=== PATIENT | female | born 1995 | race Caucasian/White ===

== ENCOUNTER 2016-05-24 12:50 | Emergency (ER) | payer OTHER ==
--- NOTE | 2016-05-24 14:31 | ED ORDER SUMMARY ---
..... Patient: BG GARDUNO OrderSheet [facility] VisitID: [id number] [address] [place] [address] 20y, F Registration Date/Time: 05/24/2016 ORDER SHEET Weight: 113.3 kg (stated) Allergies: Iodine GENERAL ORDERS: CBC w Diff Urgent (13:20 05/24/2016 HBivens A.R.N.P.) (Ack 13:24 LMuller) (13:42 ASchmuck) CMP Urgent (13:05/24/2016 HBivens A.R.N.P.) (Ack 13:24 LMuller) (13:42 ASchmuck) UA-Culture if indicated Urgent (13:05/24/2016 HBivens A.R.N.P.) (Ack 13:24 LMuller) (13:24 LMuller) Amylase Urgent (13:05/24/2016 HBivens A.R.N.P.) (Ack 13:24 LMuller) (13:42 ASchmuck) Lipase Urgent (13:05/24/2016 HBivens A.R.N.P.) (Ack 13:24 LMuller) (13:42 ASchmuck) Urine Urgent (13:05/24/2016 HBivens A.R.N.P.) (Ack 13:24 LMuller) (13:24 LMuller) MEDICATION ORDERS: IV FLUIDS: Toradol IV 30 mg (NOW) (13:20 05/24/2016 HBivens A.R.N.P.) (Ack 13:42 ASchmuck) (13:50 ASchmuck) IV Saline Lock (13:05/24/2016 HBivens A.R.N.P.) (13:42 ASchmuck) ORDER SHEET NOTES: [Electronically signed by Nadege Nunez A.R.N.P. (15:08 05/24/2016)] [Electronically signed by Tasneem Lane (14:25 05/26/2016)] [Electronically locked/signed by Tasneem Lane (14:05/26/2016)]
--- NOTE | 2016-05-24 14:31 | ED CLINICAL REPORT ---
Clinical Report - Physicians/Mid Levels [facility] [address] [place] [address] 05/24/2016 12:51 Patient: BG GARDUNO Time Seen: 1312; initial patient contact, initial documentation, patient care assumed. Arrived- By private vehicle. Historian- patient. HISTORY OF PRESENT ILLNESS Chief Complaint: ABDOMINAL PAIN. At its maximum, severity described as severe. When seen in the E.D., severity described as severe. Modifying factors- worsened by deep breaths. Not relieved by anything. It is described as "pain", sharp and stabbing and it is described as located in the left upper quadrant and the left flank. This started about 2 days ago and is still present. It was abrupt in onset and has been constant. No nausea, loss of appetite or vomiting. She has had mild diarrhea (x4 episodes today). No recent travel. Similar symptoms previously: None. Recent medical care: Not recently seen/assessed. REVIEW OF SYSTEMS No constipation, black stools, hematemesis, difficulty with urination or pain with urination. No urinary frequency, bloody stools, fever, chest pain or difficulty breathing. No cough. Currently : possible. All systems otherwise negative, except as recorded above. PAST HISTORY See nurses notes. PROBLEMS: UTI - Urinary Tract Infection. Chlamydia. LNMP - Last Normal Menstrual Period. Polycystic Ovary Disease. Depression. Anxiety Reaction. --13:[address] ADDITIONAL SURGERIES: Tonsillectomy & Adenoidectomy. --13:[address] SOCIAL HISTORY Heavy tobacco smoker. Occasional alcohol use. No drug use. No recent travel. Is a local resident. FAMILY HISTORY Negative. ADDITIONAL NOTES The nursing notes have been reviewed with agreement regarding the chief complaint, HPI, ROS, PMH and patient medications and allergies. PHYSICAL EXAM Vital Signs: 05/24/2016 13:02 BP: 124/73. HR: 93. RR: 17. O2 saturation: 100%. Temp: 98.4 F. Pain level now: 9/10. Have been reviewed as normal and appear to be correct. Appearance: Alert. Oriented X3. No acute distress. Eyes: Pupils equal, round and reactive to light. Eyes normal inspection. Neck: Normal inspection. Neck supple. CVS: Normal heart rate and rhythm. Heart sounds normal. Pulses normal. Respiratory: No respiratory distress. Breath sounds normal. Chest nontender. Abdomen: Soft. Moderate tenderness in the left upper quadrant and left side of the abdomen. Bowel sounds normal. No organomegaly. No mass. Mildly obese. Tenderness present. Back: Abnormal inspection. Mild CVA tenderness on the left. Skin: Skin warm and dry. Normal skin color. No rash. Normal skin turgor. Extremities: Extremities exhibit normal ROM. No lower extremity edema. Neuro: Oriented X 3. No motor deficit. No sensory deficit. LABS, X-RAYS, AND EKG Laboratory Tests: UA-Culture if indicated: (CONSTANTINO: 05/24/2016 13:00) ( [facility] 05/24/2016 13:58) Final results Test Result Flag Units (Reference) URINE COLOR YELLOW URINE APPEARANCE SL CLOUDY URINE GLUCOSE NEGATIVE (NEGATIVE) URINE BILIRUBIN NEGATIVE (NEGATIVE) URINE KETONE NEGATIVE (NEGATIVE) URINE SPECIFIC GRAVITY 1.020 (1.010-1.030) URINE PH 6.5 (5.0-8.0) URINE PROTEIN NEGATIVE (NEGATIVE) URINE UROBILINOGEN 0.2 EU/dL (0.2-1.0) URINE NITRITE NEGATIVE (NEGATIVE) URINE BLOOD NEGATIVE (NEGATIVE) URINE LEUK ESTERASE TRACE (NEGATIVE) URINE RBC NONE SEEN rbc/hpf (0-1) URINE WBC 10-15 wbc/hpf (0-1) URINE EPITHELIAL CELLS >15 EPI/hpf (0-5) URINE BACTERIA FEW (1+) (NONE SEEN) URINE COMMENT CULTURE INDICATED EPITHELIAL CONTAMINATION. NO CULTURE SETUP.Please call laboratory if culture wanted.URINE CULTURES ARE SET-UP BASED ON THE FOLLOWING CRITERIA:POSITIVE NITRITEPOSITIVE LEUKOCYTE ESTERASEGREATER THAN 10 WHITE BLOOD CELLSMODERATE (2+) OR GREATER BACTERIA Urine: (CONSTANTINO: 05/24/2016 13:00) ( [facility] 05/24/2016 13:32) Final results Test Result Flag Units (Reference) URINE NEGATIVE CBC w Diff: (CONSTANTINO: 05/24/2016 13:30) ( MsgRcvd 05/24/2016 13:46) Final results Test Result Flag Units (Reference) WHITE BLOOD COUNT 9.5 K/uL (4.5-11.5) RED BLOOD COUNT 5.05 M/uL (4.00-5.20) HEMOGLOBIN 14.8 gm/dL (12.0-16.0) HEMATOCRIT 43.9 % (36.0-46.0) MEAN CELL VOLUME 87 fL (80-100) MEAN CORPUSCULAR HGB 29 pg (26-34) MEAN CORPUSCULAR HGB CONC 34 g/dL (31-37) RED CELL DISTRIBUTION WIDTH 12.8 % (11.6-14.8) PLATELET COUNT 268 K/uL (150-400) NEUTROPHIL % 57.1 % (50-75) LYMPH % 31.4 % (25-40) MONO % 6.3 % (3-14) EOSINOPHIL % 4.5 H % (0-4) BASOPHIL % 0.7 % (0-2) CMP: (CONSTANTINO: 05/24/2016 13:30) ( MsgRcvd 05/24/2016 14:14) Final results Test Result Flag Units (Reference) GLUCOSE 151 H mg/dL (70-110) BUN 8 mg/dL (7-18) CREATININE 0.5 L mg/dL (0.6-1.3) Estimated GFR >60 mL/min Estimated GFR- >60 mL/min Note: Persistent reduction over 3 months in eGFR<60 mL/min/1.73 m2 defines CKD. Patients with eGFR values>=60 mL/min/1.73 m2 may also have CKD if evidence ofpersistent proteinuria. Additional information may be foundat www.kidney.org. SODIUM 142 mmol/L (136-145) POTASSIUM 4.2 mmol/L (3.5-5.1) CHLORIDE 107 mmol/L (98-107) CARBON DIOXIDE 26 mmol/L (21-32) CALCIUM 8.9 mg/dL (8.5-10.1) TOTAL PROTEIN 7.2 g/dL (6.4-8.2) ALBUMIN 3.6 g/dL (3.3-5.0) BILIRUBIN, TOTAL 0.4 mg/dL (0.0-1.0) ALKALINE PHOSPHATASE 67 U/L (46-116) AST (SGOT) 34 U/L (15-37) ALT (SGPT) 54 U/L (12-78) LIPASE 109 U/L (73-393) AMYLASE 36 U/L (25-115) . PROGRESS AND PROCEDURES Course of Care: pt has brief [facility] guidelines, see report for full details. Patient counseled in person regarding the patient's stable condition, test results and diagnosis. 14:24. Differential Diagnosis: I considered gastritis, gastroenteritis, peptic ulcer disease, gastroesophageal reflux disease, diverticulitis, colon cancer, ulcerative colitis, Crohn's disease, splenic abscess, hernia, urinary tract infection, ureterolithiasis, , ectopic and viral syndrome as a possible cause of abdominal pain in this patient. This is a partial list of diagnoses considered. Above considerations are based on history, physical exam and laboratory data. Differential diagnosis was discussed with patient. Disposition: Discharged home in good and improved condition (14:31). Condition: good and stable. CLINICAL IMPRESSION Acute urinary tract infection. No cystitis, pyelonephritis or hematuria. Not associated with indwelling catheter or obstruction. Acute left flank pain INSTRUCTIONS Drink plenty of fluids for the next 24 hours until better. Warnings: GENERAL WARNINGS: Return or contact your physician immediately if your condition worsens or changes unexpectedly, if not improving as expected, or if other problems arise. SPECIFICALLY, return if you develop pain in the abdomen or pelvis, fever, vomiting, the inability to keep fluids down, blood in vomitus, blood in diarrhea, fainting or lightheadedness. Prescription Medications: Trimethoprim-Sulfamethoxazole DS: take 1 tablet orally every 12 hours for 7 days. Dispense fourteen (14). No refills. Toradol 10 mg tablets: Take 1 tablet orally every 6 hours as needed. Dispense fifteen (15). No refills. Substitution is permissible. Follow-up: Follow up with your doctor in about three days even if well. Call for an appointment. Summary of care provided to patient. Understanding of the discharge instructions verbalized by patient. (Electronically signed by Nadege Nunez A.R.N.P. 05/24/2016 15:08)
--- NOTE | 2016-05-24 14:31 | ED NURSING NOTES ---
Clinical Report - Nurses [facility] [address] [place] [address] 05/24/2016 12:51 Patient: BG GARDUNO TRIAGE Triage time 13:02 May 24 2016. Acuity: LEVEL 3. Chief Complaint: ABDOMINAL PAIN. 13:09 05/24/16. Alert. No acute distress. SEPSIS SCREEN: Sepsis Screen. Negative (no infection suspected/documented). JUAN DAVID COMA SCORE: Juan David Coma Scale: 15- eyes open spontaneously (4); best verbal response- oriented x 4 (5); best motor response- obeys commands (6). --13:[address] 13:02 05/24/16. BP: 124/73. HR: 93. RR: 17. O2 saturation: 100% on room air. Temp: 98.4 F. Pain level now: 12/24. --13:[address] Weight: 113.3 kg stated. Height/Length: 68 inches Per Patient. BMI: 38. --13:[address] Medications None. --13:[address] Medication/allergy information source: the patient. --13:[address] Allergies Iodine. --13:[address] The following entry was struck by Tasneem Lane, 13:51 (05/24/16) Reason - other(patient remembered allergy). <<STRICKEN ENTRY-- None. --13:08 [address] --END STRIKE>>. History Arrived by private vehicle. Historian: patient. Unaccompanied. No primary care physician. Onset. (2 days ago). Relates location as in the left abdomen. ( Pt states that she is unable to sleep at night d/t pain. Pt reports nose bleed after this has started. Has been nauseous. Has had diarrhea about 6-10 times a day. Nothing makes the pain better. Breathing makes the pain worse, laying on her opposite side makes the pain worse.). She has had nausea, diarrhea and abdominal pain. She has had fever (hot flashes). No vomiting or constipation. Treatment [employer] MECH[employer]IC: Took ibuprofen. PAST MEDICAL HX: Peptic ulcer disease. No history of diabetes mellitus. No history of gastroesophageal reflux disease or gallstones. Immunizations: up-to-date. Last normal menstrual period was 2 weeks ago- has irregular periods. SOCIAL HX: Heavy tobacco smoker (cigarette)- less than 1 pack per day. Occasional alcohol use. No drug use. FALL RISK ASSESSMENT: Fall risk assessment completed. No fall risk identified. NUTRITIONAL RISK ASSESSMENT: The nutritional risk assessment revealed no deficiencies. FUNCTIONAL ASSESSMENT: Functional assessment: no impairments noted. LEARNING NEEDS ASSESSMENT: The learning needs assessment revealed no barriers. SKIN INTEGRITY ASSESSMENT: Skin integrity risk assessment completed. No skin integrity risk identified. --13: Tasneem Lane. PROBLEMS: UTI - Urinary Tract Infection. Chlamydia. LNMP - Last Normal Menstrual Period. Polycystic Ovary Disease. Depression. Anxiety Reaction. --13:[address] ADDITIONAL SURGERIES: Tonsillectomy & Adenoidectomy. --13:[address] Assessment The patient states feels the same. --13: Tasneem Lane. Interventions ID band on patient. Patient ID band checked for patient name and birthdate: patient confirmed. Instructions provided to collect clean catch urine and patient verbalized understanding. Clean catch urine collected with return of yellow-colored clear urine; sample sent to lab. Specimen labeled in the presence of the patient. --13: Tasneem Lane. PHYSICAL ASSESSMENT 13:05/24/16. Ambulatory to room. Patient gowned. GENERAL / NEURO / PSYCH: Alert. Oriented X 4. Appears in no acute distress. HEENT: Mucous membranes are pink. RESPIRATORY: Respirations not labored. CVS: Capillary refill less than 2 seconds. GI / : Abdomen soft. Abdominal tenderness in the left side of the abdomen. Stool color normal. SKIN: Skin is warm and dry. --13: Tasneem Lane. NURSING PROGRESS NOTES 13:05/24/16. The plan of care for this patient has been created. Patient gowned. Head of bed elevated. Reassurance given. Two patient identifiers checked. Call light placed in reach. Side rails up x 1. Bed placed in lowest position. Brakes of bed on. Patient ready for evaluation- chart flagged and ED physician and [employer]SEMBLER notified. --13:[address] 13:22 05/24/2016 One (1) unsuccessful IV access attempt including the right forearm. Applied pressure dressing. --13:[address] 13:36 05/24/2016 Site #1 started via IV in the right forearm with an 20g angiocath; one attempt. Blood drawn: rainbow set. Labeled in the presence of the patient and sent to the lab. Saline lock flushed with 5 mL saline. --13:36 Ailin Mcwilliams R.N. 13:50 05/24/2016 Toradol IVP 30 mg given over 1 minute(s) via site #1. Allergies verified and confirmed 5 rights. IV patency established. IV site checked: no pain, redness, or swelling. IV flushed thoroughly pre- and post-medication administration. IVP given by RN. --13:[address] 14:27 05/24/16. --14:[address] 14:26 05/24/16. BP: 116/66. HR: 72. RR: 16. O2 saturation: 98% on room air. Pain level now: 10/23. --14:[address] 14:42 05/24/16. BP: deferred. HR: deferred. RR: deferred. O2 saturation: deferred. Temp: deferred. Pain level now deferred. --14:[address] DISPOSITION / DISCHARGE 14:45 05/24/16. Departure time: 14:45 May 24 2016. Condition at departure: improved. The goals identified in the patient's plan of care were met. No learning barriers present. Discharge instructions provided and reviewed with the patient. Reviewed warnings (Patient verbalized awareness of warning s/sx listed in dc paperwork.). Reviewed medication(s). Prescription(s) given to the patient (Bactrim, Toradol). Treatments reviewed. Reviewed referral to a primary care physician for followup. Patient verbalized understanding. Written instructions provided in Iranian. The patient was discharged by the nurse practitioner. She was discharged home and unaccompanied at time of discharge. She left the Emergency Department ambulatory and via private vehicle. Patient driving. FALL RISK ASSESSMENT: Fall risk assessment completed. No fall risk identified. --14:[address] 14:42 05/24/16. BP: deferred. HR: deferred. RR: deferred. O2 saturation: deferred. Temp: deferred. Pain level now deferred. 14:26 05/24/16. BP: 116/66. HR: 72. RR: 16. O2 saturation: 98% on room air. Pain level now: 10/23. 13:02 05/24/16. BP: 124/73. HR: 93. RR: 17. O2 saturation: 100% on room air. Temp: 98.4 F. Pain level now: 12/24. --14:[address] Locked/Released at 05/26/2016 14:[address],
--- NOTE | 2016-05-24 14:31 | ED ORDER SUMMARY ---
..... Patient: BG GARDUNO OrderSheet [facility] VisitID: [id number] [address] [place] [address] 20y, F Registration Date/Time: 05/24/2016 ORDER SHEET Weight: 113.3 kg (stated) Allergies: Iodine GENERAL ORDERS: CBC w Diff Urgent (13:20 05/24/2016 HBivens A.R.N.P.) (Ack 13:24 LMuller) (13:42 ASchmuck) CMP Urgent (13:05/24/2016 HBivens A.R.N.P.) (Ack 13:24 LMuller) (13:42 ASchmuck) UA-Culture if indicated Urgent (13:05/24/2016 HBivens A.R.N.P.) (Ack 13:24 LMuller) (13:24 LMuller) Amylase Urgent (13:05/24/2016 HBivens A.R.N.P.) (Ack 13:24 LMuller) (13:42 ASchmuck) Lipase Urgent (13:05/24/2016 HBivens A.R.N.P.) (Ack 13:24 LMuller) (13:42 ASchmuck) Urine Urgent (13:05/24/2016 HBivens A.R.N.P.) (Ack 13:24 LMuller) (13:24 LMuller) MEDICATION ORDERS: IV FLUIDS: Toradol IV 30 mg (NOW) (13:20 05/24/2016 HBivens A.R.N.P.) (Ack 13:42 ASchmuck) (13:50 ASchmuck) IV Saline Lock (13:05/24/2016 HBivens A.R.N.P.) (13:42 ASchmuck) ORDER SHEET NOTES: [Electronically signed by Nadege Nunez A.R.N.P. (15:08 05/24/2016)] [Electronically signed by Tasneem Lane (14:25 05/26/2016)] [Electronically locked/signed by Tasneem Lane (14:05/26/2016)]
--- NOTE | 2016-05-26 14:26 | ED MAR SUMMARY ---
..... Medication Administration Record [facility] [address] [place], [place] [id number] Patient: BG GARDUNO Visit ID: [id number] 20y, F Weight: 113.3 kg Height/Length: 68 in BMI: 38 ALLERGIES: Iodine Given 13:50 05/24/[address], Medication Administered: TORADOL [IVP], Dose: 30 mg IVP over 1 minute(s), Site: #1 right forearm. Medication Ordered: Toradol IV 30 mg (NOW).
--- NOTE | 2016-05-26 14:26 | ED MED RECONCILIATION SUMMARY ---
Patient: BG GARDUNO Medication Reconciliation Report [facility] VisitID: [id number] [address] [place] [address] 20y, F Registration Date/Time: 05/24/2016 Weight: 113.3 kg Height/Length: 68 in. BMI: 38.0 ALLERGIES: Iodine The patient's Home Medications are listed below: NONE. The source(s) of the original Home Medication information: patient The following Medications were given to the patient in the Emergency Department: Toradol [IVP] IVP 30 mg, administered: 05/24/2016 1:50:00 PM The following Medications were prescribed to the patient: Trimethoprim-Sulfamethoxazole DS: take 1 tablet orally every 12 hours for 7 days. Dispense fourteen (14). No refills. -- Nadege Nunez A.R.N.P. Toradol 10 mg tablets: Take 1 tablet orally every 6 hours as needed. Dispense fifteen (15). No refills. Substitution is permissible. -- Nadege Nunez A.R.N.P.
--- NOTE | 2016-05-26 14:26 | ED MAR SUMMARY ---
..... Medication Administration Record [facility] [address] [place], [place] [id number] Patient: BG GARDUNO Visit ID: [id number] 20y, F Weight: 113.3 kg Height/Length: 68 in BMI: 38 ALLERGIES: Iodine Given 13:50 05/24/[address], Medication Administered: TORADOL [IVP], Dose: 30 mg IVP over 1 minute(s), Site: #1 right forearm. Medication Ordered: Toradol IV 30 mg (NOW).
--- NOTE | 2016-05-26 14:26 | ED MED RECONCILIATION SUMMARY ---
Patient: BG GARDUNO Medication Reconciliation Report [facility] VisitID: [id number] [address] [place] [address] 20y, F Registration Date/Time: 05/24/2016 Weight: 113.3 kg Height/Length: 68 in. BMI: 38.0 ALLERGIES: Iodine The patient's Home Medications are listed below: NONE. The source(s) of the original Home Medication information: patient The following Medications were given to the patient in the Emergency Department: Toradol [IVP] IVP 30 mg, administered: 05/24/2016 1:50:00 PM The following Medications were prescribed to the patient: Trimethoprim-Sulfamethoxazole DS: take 1 tablet orally every 12 hours for 7 days. Dispense fourteen (14). No refills. -- Nadege Nunez A.R.N.P. Toradol 10 mg tablets: Take 1 tablet orally every 6 hours as needed. Dispense fifteen (15). No refills. Substitution is permissible. -- Nadege Nunez A.R.N.P.
--- NOTE | 2016-05-26 14:26 | ED DISCHARGE INSTRUCTIONS ---
Patient: BG GARDUNO General Instructions [facility] VisitID: [id number] [address] [place] [address] 20y, F Registration Date/Time: 05/24/2016 Acute urinary tract infection. No cystitis, pyelonephritis or hematuria. Not associated with indwelling catheter or obstruction. Acute left flank pain INSTRUCTIONS Drink plenty of fluids for the next 24 hours until better. Warnings: GENERAL WARNINGS: Return or contact your physician immediately if your condition worsens or changes unexpectedly, if not improving as expected, or if other problems arise. SPECIFICALLY, return if you develop pain in the abdomen or pelvis, fever, vomiting, the inability to keep fluids down, blood in vomitus, blood in diarrhea, fainting or lightheadedness. Prescription Medications: Trimethoprim-Sulfamethoxazole DS: take 1 tablet orally every 12 hours for 7 days. Dispense fourteen (14). No refills. Toradol 10 mg tablets: Take 1 tablet orally every 6 hours as needed. Dispense fifteen (15). No refills. Substitution is permissible. Follow-up: Follow up with your doctor in about three days even if well. Call for an appointment. Summary of care provided to patient. Understanding of the discharge instructions verbalized by patient. ADDITIONAL INFORMATION Bladder Infection,Female (Adult) A bladder infection ("cystitis" or "UTI") usually causes a constant urge to urinate and a burning when passing urine. Urine may be cloudy, smelly or dark. There may be pain in the lower abdomen. A bladder infection occurs when bacteria from the vaginal area enter the bladder opening (urethra). This can occur from sexual intercourse, wearing tight clothing, dehydration and other factors. Home Care: Drink lots of fluids (at least 6-8 glasses a day, unless you must restrict fluids for other medical reasons). This will force the medicine into your urinary system and flush the bacteria out of your body. Avoid sexual intercourse until your symptoms are gone. Avoid caffeine, alcohol and spicy foods. These can irritate the bladder. A bladder infection is treated with antibiotics. You may also be given Pyridium (generic = phenazopyridine) to reduce the burning sensation. This medicine will cause your urine to become a bright orange color. The orange urine may stain clothing. You may wear a pad or panty-liner to protect clothing. Preventing Future Infections: Always wipe from front to back after a bowel movement. Keep the genital area clean and dry. Drink plenty of fluids each day to avoid dehydration. Both sexual partners should wash before intercourse. Urinate right after intercourse to flush out the bladder. Wear cotton underwear and cotton-lined panty hose; avoid tight-fitting pants. If you are on control pills and are having frequent bladder infections, discuss with your doctor. Follow Up: Return to this facility or see your doctor if ALL symptoms are not gone after three days of treatment. Get Prompt Medical Attention if any of the following occur: Fever of 100.4F (38C) or higher, or as directed by your healthcare provider No improvement by the third day of treatment Increasing back or abdominal pain Repeated vomiting; unable to keep medicine down Weakness, dizziness or fainting Vaginal discharge Pain, redness or swelling in the labia (outer vaginal area) Flank Pain[Uncertain Cause] The flank is the area between the upper abdomen and the back. Pain here is often related to the kidneyan infection or a kidney stone. Other causes of flank pain include spinal arthritis, pinched nerve from a disk injury, back muscle strain or spasm. The cause of your flank pain is not certain and further tests may be needed. Home Care: You may use acetaminophen (Tylenol) or ibuprofen (Motrin, Advil) to control pain, unless another medicine was prescribed. [NOTE: If you have chronic liver or kidney disease or ever had a stomach ulcer or GI bleeding, talk with your doctor before using these medicines.] If the cause of your pain is coming from the muscles, ice or heat may give relief. During the first two days after injury, apply an ICE PACK to the painful area for 20 minutes every 2-4 hours. This will reduce swelling and pain. HEAT (hot shower, hot bath or heating pad) works well for muscle spasm. You can start with ice, then switch to heat after two days. Some patients feel best alternating ice and heat treatments. Use the one method that feels the best to you. Follow Up with your doctor or as advised by our staff for further evaluation if your symptoms are not improving over the next few days. Return Promptly or contact your doctor if any of the following occur: Repeated vomiting Fever of 100.4F (38C) or higher, or as directed by your healthcare provider Increasing flank pain Pain that spreads to the front of the abdomen Dizziness, weakness or fainting Blood in your urine Burning with urination or frequent urination Increasing pain in the leg Numbness or weakness in the leg Sulfamethoxazole, Trimethoprim Oral tablet What is this medicine? SULFAMETHOXAZOLE; TRIMETHOPRIM or SMX-TMP (suhl fuh meth OK tina zohl; trye METH oh prim) is a combination of a sulfonamide antibiotic and a second antibiotic, trimethoprim. It is used to treat or prevent certain kinds of bacterial infections. It will not work for colds, flu, or other viral infections. How should I use this medicine? Take this medicine by mouth with a full glass of water. Follow the directions on the prescription label. Take your medicine at regular intervals. Do not take it more often than directed. Do not skip doses or stop your medicine early. Talk to your bandage wrapping machine operator regarding the use of this medicine in children. Special care may be needed. This medicine has been used in children as young as 2 months of age. What side effects may I notice from receiving this medicine? Side effects that you should report to your doctor or health infant childcare provider as soon as possible: allergic reactions like skin rash or hives, swelling of the face, lips, or tongue breathing problems fever or chills, sore throat irregular heartbeat, chest pain joint or muscle pain pain or difficulty passing urine red pinpoint spots on skin redness, blistering, peeling or loosening of the skin, including inside the mouth unusual bleeding or bruising unusually weak or tired yellowing of the eyes or skin Side effects that usually do not require medical attention (report to your doctor or health infant childcare provider if they continue or are bothersome): diarrhea dizziness headache loss of appetite nausea, vomiting nervousness What may interact with this medicine? Do not take this medicine with any of the following medications: aminobenzoate potassium dofetilide metronidazole This medicine may also interact with the following medications: JYOTHI inhibitors like benazepril, enalapril, lisinopril, and ramipril cyclosporine digoxin diuretics indomethacin medicines for diabetes methenamine methotrexate phenytoin potassium supplements pyrimethamine sulfinpyrazone tricyclic antidepressants warfarin What if I miss a dose? If you miss a dose, take it as soon as you can. If it is almost time for your next dose, take only that dose. Do not take double or extra doses. Where should I keep my medicine? Keep out of the reach of children. Store at room temperature between 20 to 25 degrees C (68 to 77 degrees F). Protect from light. Throw away any unused medicine after the expiration date. What should I tell my health care provider before I take this medicine? They need to know if you have any of these conditions: anemia asthma being treated with anticonvulsants if you frequently drink alcohol containing drinks kidney disease liver disease low level of folic acid or [id number] dehydrogenase poor nutrition or malabsorption porphyria severe allergies thyroid disorder an unusual or allergic reaction to sulfamethoxazole, trimethoprim, sulfa drugs, other medicines, foods, dyes, or preservatives or trying to get breast-feeding What should I watch for while using this medicine? Tell your doctor or health infant childcare provider if your symptoms do not improve. Drink several glasses of water a day to reduce the risk of kidney problems. Do not treat diarrhea with over the counter products. Contact your doctor if you have diarrhea that lasts more than 2 days or if it is severe and watery. This medicine can make you more sensitive to the sun. Keep out of the sun. If you cannot avoid being in the sun, wear protective clothing and use a sunscreen. Do not use sun lamps or tanning beds/booths. Ketorolac Tromethamine Oral tablet What is this medicine? KETOROLAC (lennox toe ROLE ak) is a non-steroidal anti-inflammatory drug (NSAID). It is used for a short while to treat moderate to severe pain, including pain after surgery. It should not be used for more than 5 days. How should I use this medicine? Take this medicine by mouth with a full glass of water. Follow the directions on the prescription label. Take your medicine at regular intervals. Do not take your medicine more often than directed. Do not take more than the recommended dose. A special MedGuide will be given to you by the pharmacist with each prescription and refill. Be sure to read this information carefully each time. Talk to your bandage wrapping machine operator regarding the use of this medicine in children. While this drug may be prescribed for children as young as 16 years of age for selected conditions, precautions do apply. Patients over 65 years old may have a stronger reaction and need a smaller dose. What side effects may I notice from receiving this medicine? Side effects that you should report to your doctor or health infant childcare provider as soon as possible: allergic reactions like skin rash, itching or hives, swelling of the face, lips, or tongue black or tarry stools breathing problems changes in vision chest pain high blood pressure nausea or vomiting redness, blistering, peeling or loosening of the skin, including inside the mouth severe abdominal pain slurred speech or weakness on one side of the body unexplained weight gain or swelling unusual bleeding or bruising unusually weak or tired yellowing of eyes or skin Side effects that usually do not require medical attention (report to your doctor or health infant childcare provider if they continue or are bothersome): diarrhea dizziness headache heartburn What may interact with this medicine? Do not take this medicine with any of the following medications: aspirin and aspirin-like medicines cidofovir methotrexate NSAIDs, medicines for pain and inflammation, like ibuprofen or naproxen pemetrexed probenecid This medicine may also interact with the following medications: alcohol alendronate alprazolam carbamazepine cyclosporine diuretics flavocoxid fluoxetine ginkgo lithium medicines for high blood pressure like enalapril medicines that affect platelets like pentoxifylline medicines that treat or prevent blood clots like heparin, warfarin muscle relaxants phenytoin steroid medicines like prednisone or cortisone thiothixene What if I miss a dose? If you miss a dose, take it as soon as you can. If it is almost time for your next dose, take only that dose. Do not take double or extra doses. Where should I keep my medicine? Keep out of the reach of children. Store at room temperature between 20 and 25 degrees C (68 and 77 degrees F). Throw away any unused medicine after the expiration date. What should I tell my health care provider before I take this medicine? They need to know if you have any of these conditions: asthma bleeding problems like hemophilia cigarette smoker drink more than 3 alcohol containing drinks a day heart disease or circulation problems such as heart failure or leg edema (fluid retention) high blood pressure kidney disease liver disease stomach bleeding or ulcers an unusual or allergic reaction to ketorolac, aspirin, other NSAIDs, other medicines, foods, dyes, or preservatives or trying to get breast-feeding What should I watch for while using this medicine? Tell your doctor or health infant childcare provider if your pain does not get better. Talk to your doctor before taking another medicine for pain. Do not treat yourself. This medicine does not prevent heart attack or stroke. In fact, this medicine may increase the chance of a heart attack or stroke. The chance may increase with longer use of this medicine and in people who have heart disease. If you take aspirin to prevent heart attack or stroke, talk with your doctor or health infant childcare provider. Do not take medicines such as ibuprofen and naproxen with this medicine. Side effects such as stomach upset, nausea, or ulcers may be more likely to occur. Many medicines available without a prescription should not be taken with this medicine. This medicine can cause ulcers and bleeding in the stomach and intestines at any time during treatment. Do not smoke cigarettes or drink alcohol. These increase irritation to your stomach and can make it more susceptible to damage from this medicine. Ulcers and bleeding can happen without warning symptoms and can cause . You may get drowsy or dizzy. Do not drive, use machinery, or do anything that needs mental alertness until you know how this medicine affects you. Do not stand or sit up quickly, especially if you are an older patient. This reduces the risk of dizzy or fainting spells. This medicine can cause you to bleed more easily. Try to avoid damage to your teeth and gums when you brush or floss your teeth. You have been given the following additional information: Bladder Infection, Female (Adult) Flank Pain, Uncertain Cause Sulfamethoxazole, Trimethoprim Oral tablet Ketorolac Tromethamine Oral tablet (Electronically signed by Nadege Nunez A.R.N.P. 05/24/2016 15:08)
== END 2016-05-24 14:45 | disposition home or self-care (01) ==
LOC: ED SRH 12:50
DX: N39.0 Urinary tract infection, site not specified (principal); R10.32 Left lower quadrant pain; F17.210 Nicotine dependence, cigarettes, uncomplicated
CPT/HCPCS: 90004; 90100; 92235; 92530; 93070; 95059

== ENCOUNTER 2016-08-01 09:51 | Emergency (ER) | payer OTHER ==
--- NOTE | 2016-08-01 13:02 | DIAGNOSTIC IMAGING REPORT ---
PROCEDURE: CT ABDOMEN/PELVIS W/O CONTRAST INDICATION: Right flank pain with vomiting and diarrhea. Initial encounter. TECHNIQUE: Noncontrast axial images were obtained of the entire abdomen and pelvis with sagittal and coronal reformations. COMPARISON: CT abdomen/pelvis 05/27/2013. FINDINGS: ABDOMEN: Lung bases are clear. Normal heart size. Hepatic steatosis. Gallbladder, pancreas, spleen, adrenal glands and kidneys are normal. Normal abdominal aorta. Nonspecific bowel gas pattern. PELVIS: Normal appendix. Uterus, adnexa and bladder are normal. No inflammatory changes or free fluid. Bones are unremarkable. IMPRESSION: 1. Hepatic steatosis 2. Results discussed with Dr. Morataya All CT scans at this facility use dose modulation, iterative reconstruction, and/or weight-based dosing when appropriate to reduce radiation dose to as low as reasonably achievable.
--- NOTE | 2016-08-01 13:10 | ED NURSING NOTES ---
Clinical Report - Nurses [facility] [address] [place] [address] 08/01/2016 9:53 Patient: BG GARDUNO TRIAGE 10:03 08/01/16. O2 saturation: 96%. Temp: 98.1 F. --10:04 Manuel Trujillo R.N. Triage time 1007 AM. Acuity: LEVEL 3. Chief Complaint: ABDOMINAL PAIN, NAUSEA, VOMITING and DIARRHEA. Alert. No acute distress. SEPSIS SCREEN: Sepsis Screen. Negative (no infection suspected/documented). --10:11 Ana María Vazquez R.N. Weight: 111.1 kg stated. Height/Length: 68 inches Per Patient. BMI: 37.3. --10:05 Ana María Vazquez R.N. Medications None. --10:07 Ana María Vazquez R.N. Allergies Iodine. --10:07 Ana María Vazquez R.N. Medication/allergy information source: the patient. --10:11 Ana María Vazquez R.N. History Arrived by EMS. Primary physician (None). ( Pt states this abdominal pain started yesterday, thought maybe it was a UTI, has vomited several times today (4) and yesterday. States right side lower pain that radiates to flank area. She woke up this morning "feeling like peeing raiser blades, burning" Here for evaluation). This started yesterday. She has had moderate nausea, vomiting. The vomiting has occurred several times, diarrhea and abdominal pain. No constipation. Treatment MEDICAL MANAGEMENT SPECIALIST: None. See EMS report. PAST MEDICAL HX: Immunizations: up-to-date. SOCIAL HX: Light tobacco smoker (cigarette)- less than 1/2 a pack per day. Occasional alcohol use. No drug use. No recent travel. No infectious disease exposure. No known contact with a sick individual. ABUSE ASSESSMENT: No report of abuse. SELF HARM ASSESSMENT: A self harm assessment was performed. The patient answered "no" to the question "Do you have thoughts of harming or killing yourself?" and "Have you recently had thoughts about harming or killing others?". FALL RISK ASSESSMENT: Fall risk assessment completed. No fall risk identified. NUTRITIONAL RISK ASSESSMENT: The nutritional risk assessment revealed no deficiencies. FUNCTIONAL ASSESSMENT: Functional assessment: no impairments noted. LEARNING NEEDS ASSESSMENT: The learning needs assessment revealed no barriers. SKIN INTEGRITY ASSESSMENT: Skin integrity risk assessment completed. No skin integrity risk identified. --10:11 Ana María Vazquez R.N. PROBLEMS: Flank Pain. Peptic Ulcer Disease. UTI - Urinary Tract Infection. Chlamydia. LNMP - Last Normal Menstrual Period. Depression. Anxiety Reaction. --10:07 Ana María Vazquez R.N. ADDITIONAL SURGERIES: Tonsillectomy & Adenoidectomy. --10:07 Ana María Vazquez R.N. Interventions ID band on patient. --10:11 Ana María Vazquez R.N. PHYSICAL ASSESSMENT To room via stretcher. GENERAL / NEURO / PSYCH: Alert. Oriented X 4. Appears in pain. HEENT: Mucous membranes are pink. RESPIRATORY: Respirations not labored. Breath sounds within normal limits. CVS: Capillary refill less than 2 seconds. GI / : The patient has had nausea and diarrhea. Abdomen soft and nontender. Bowel sounds within normal limits. No blood in the stool. SKIN: Skin is warm and dry. --10:11 Ana María Vazquez R.N. NURSING PROGRESS NOTES Patient ID band checked for patient name and birthdate: patient confirmed. Instructions provided to collect clean catch urine and patient verbalized understanding urine collected with return of yellow-colored clear urine; sample sent to lab for urinalysis. Specimen labeled in the presence of the patient. --10:03 Manuel Trujillo R.N. The initial plan of care for this patient has been created This plan of care was discussed with the patient. Patient gowned. Reassurance given. Two patient identifiers checked. Call light placed in reach. Side rails up x 1. Bed placed in lowest position. Brakes of bed on. Patient ready for evaluation- ED physician notified. --10:12 Ana María Vazquez R.N. 11:36 08/01/2016 Hydrocodone-APAP (Hydrocodone-Acetaminophen) PO 10/650 mg Tablets 2 tab given. Allergies verified, confirmed 5 rights and sedative warning given to the patient. --11:36 Ana María Vazquez R.N. 11:36 08/01/2016 Zofran ODT (Ondansetron) PO Tablets 4 mg given. Allergies verified and confirmed 5 rights. --11:36 Ana María Vazquez R.N. Reassurance given. The patient is calm. Overall patient status is the same- she states feels the same. ( Meds given as ordered, emotional support provided.). GI / : The patient reports nausea. The patient reports abdominal pain. Patient identifiers checked. Call light placed in reach. Side rails up x 1. --11:37 Ana María Vazquez R.N. 11:36 08/01/16. BP: 104/55 (regular adult cuff) taken on the left arm, via an automated monitor, while lying. HR: 67. RR: 12. O2 saturation: 100% on room air. Temp: 98.2 F (oral). --11:37 Ana María Vazquez R.N. Patient returned from [place]. (1248 PM). --12:48 Ana María Vazquez R.N. DISPOSITION / DISCHARGE Departure time: 13:19. Condition at departure: improved. ( Pt stated she has no pain). No learning barriers present. Discharge instructions provided and reviewed with the patient. Reviewed medication(s) side effects, precautions, dosing and course information. Prescription(s) given to the patient (zofran, sulfa, pryidium hydrocodone). Patient verbalized understanding. Written instructions provided in Serbian. The patient was discharged by the physician. She was discharged home and unaccompanied at time of discharge. She left the Emergency Department ambulatory and via private vehicle. Patient driving. JHON COMA SCORE: [place] Coma Scale: 15- eyes open spontaneously (4); best verbal response- oriented x 4 (5); best motor response- obeys commands (6). --13:19 Donavan Santoro R.N. 13:14 08/01/16. BP: 97/55. HR: 80. RR: 15. O2 saturation: 100%. Pain level now 0/10. --13:19 Donavan Santoro R.N. Locked/Released at 08/01/2016 13:19 by Donavan Santoro R.N.
--- NOTE | 2016-08-01 13:10 | ED ORDER SUMMARY ---
..... Patient: BG GARDUNO [facility] VisitID: [id number] [place] [address] 21y, F Registration Date/Time: 08/01/2016 ORDER SHEET Weight: 111.1 kg (stated) Allergies: Iodine GENERAL ORDERS: UA-Culture if indicated Urgent (10:13 08/01/2016 Sydnee R.NLatrice per protocol) (10:14 PWeiler ER Tech1) CT Abd/Pel wo Cont Urgent (12:08/01/2016 Niru BARTHOLOMEW) (Ack 12:02 PWeiler ER Tech1) (12:20 TLewis R.N.) Urine Urgent (12:08/01/2016 Niru BARTHOLOMEW) (Ack 12:02 PWeiler ER Tech1) (12:20 TLewis R.N.) Urine Drug Screen Urgent (12:08/01/2016 Niru BARTHOLOMEW) (Ack 12:02 PWeiler ER Tech1) (12:20 TLewis R.N.) MEDICATION ORDERS: Hydrocodone-APAP PO 10/650 mg (NOW) (11:30 08/01/2016 Niru BARTHOLOMEW) (11:36 EHassajose elias R.N.) Zofran ODT PO 4 mg (NOW) (11:31 08/01/2016 Niru BARTHOLOMEW) (11:36 Sydnee R.N.) IV FLUIDS: ORDER SHEET NOTES: [Electronically signed by Donavan Santoro R.N. (13:19 08/01/2016)] [Electronically signed by Chris Morataya MD (21:17 08/02/2016)] [Electronically locked/signed by Donavan Santoro R.N. (13:19 08/01/2016)]
--- NOTE | 2016-08-01 13:10 | ED ORDER SUMMARY ---
..... Patient: BG GARDUNO OrderSheet [facility] VisitID: [id number] [place] [address] 21y, F Registration Date/Time: 08/01/2016 ORDER SHEET Weight: 111.1 kg (stated) Allergies: Iodine GENERAL ORDERS: UA-Culture if indicated Urgent (10:13 08/01/2016 Sydnee R.NLatrice per protocol) (10:14 PWeiler ER Tech1) CT Abd/Pel wo Cont Urgent (12:08/01/2016 Niru BARTHOLOMEW) (Ack 12:02 PWeiler ER Tech1) (12:20 TLewis R.N.) Urine Urgent (12:08/01/2016 Niru BARTHOLOMEW) (Ack 12:02 PWeiler ER Tech1) (12:20 TLewis R.N.) Urine Drug Screen Urgent (12:08/01/2016 Niru BARTHOLOMEW) (Ack 12:02 PWeiler ER Tech1) (12:20 TLewis R.N.) MEDICATION ORDERS: Hydrocodone-APAP PO 10/650 mg (NOW) (11:30 08/01/2016 Niru BARTHOLOMEW) (11:36 EHassajose elias R.N.) Zofran ODT PO 4 mg (NOW) (11:31 08/01/2016 Niru BARTHOLOMEW) (11:36 Sydnee R.N.) IV FLUIDS: ORDER SHEET NOTES: [Electronically signed by Donavan Santoro R.N. (13:19 08/01/2016)] [Electronically signed by Chris Morataya MD (21:17 08/02/2016)] [Electronically locked/signed by Donavan Santoro R.N. (13:19 08/01/2016)]
--- NOTE | 2016-08-01 13:10 | ED NURSING NOTES ---
Clinical Report - Nurses [facility] [address] [place] [address] 08/01/2016 9:53 Patient: BG GARDUNO TRIAGE 10:03 08/01/16. O2 saturation: 96%. Temp: 98.1 F. --10:04 Manuel Trujillo R.N. Triage time 1007 AM. Acuity: LEVEL 3. Chief Complaint: ABDOMINAL PAIN, NAUSEA, VOMITING and DIARRHEA. Alert. No acute distress. SEPSIS SCREEN: Sepsis Screen. Negative (no infection suspected/documented). --10:11 Ana María Vazquez R.N. Weight: 111.1 kg stated. Height/Length: 68 inches Per Patient. BMI: 37.3. --10:05 Ana María Vazquez R.N. Medications None. --10:07 Ana María Vazquez R.N. Allergies Iodine. --10:07 Ana María Vazquez R.N. Medication/allergy information source: the patient. --10:11 Ana María Vazquez R.N. History Arrived by EMS. Primary physician (None). ( Pt states this abdominal pain started yesterday, thought maybe it was a UTI, has vomited several times today (4) and yesterday. States right side lower pain that radiates to flank area. She woke up this morning "feeling like peeing raiser blades, burning" Here for evaluation). This started yesterday. She has had moderate nausea, vomiting. The vomiting has occurred several times, diarrhea and abdominal pain. No constipation. 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 PAST MEDICAL HX: Immunizations: up-to-date. SOCIAL HX: Light tobacco smoker (cigarette)- less than 1/2 a pack per day. Occasional alcohol use. No drug use. No recent travel. No infectious disease exposure. No known contact with a sick individual. ABUSE ASSESSMENT: No report of abuse. SELF HARM ASSESSMENT: A self harm assessment was performed. The patient answered "no" to the question "Do you have thoughts of harming or killing yourself?" and "Have you recently had thoughts about harming or killing others?". FALL RISK ASSESSMENT: Fall risk assessment completed. No fall risk identified. NUTRITIONAL RISK ASSESSMENT: The nutritional risk assessment revealed no deficiencies. FUNCTIONAL ASSESSMENT: Functional assessment: no impairments noted. LEARNING NEEDS ASSESSMENT: The learning needs assessment revealed no barriers. SKIN INTEGRITY ASSESSMENT: Skin integrity risk assessment completed. No skin integrity risk identified. --10:11 Ana María Vazquez R.N. PROBLEMS: Flank Pain. Peptic Ulcer Disease. UTI - Urinary Tract Infection. Chlamydia. LNMP - Last Normal Menstrual Period. Depression. Anxiety Reaction. --10:07 Ana María Vazquez R.N. ADDITIONAL SURGERIES: Tonsillectomy & Adenoidectomy. --10:07 Ana María Vazquez R.N. Interventions ID band on patient. --10:11 Ana María Vazquez R.N. PHYSICAL ASSESSMENT To room via stretcher. GENERAL / NEURO / PSYCH: Alert. Oriented X 4. Appears in pain. HEENT: Mucous membranes are pink. RESPIRATORY: Respirations not labored. Breath sounds within normal limits. CVS: Capillary refill less than 2 seconds. GI / : The patient has had nausea and diarrhea. Abdomen soft and nontender. Bowel sounds within normal limits. No blood in the stool. SKIN: Skin is warm and dry. --10:11 Ana María Vazquez R.N. NURSING PROGRESS NOTES Patient ID band checked for patient name and birthdate: patient confirmed. Instructions provided to collect clean catch urine and patient verbalized understanding urine collected with return of yellow-colored clear urine; sample sent to lab for urinalysis. Specimen labeled in the presence of the patient. --10:03 Manuel Trujillo R.N. The initial plan of care for this patient has been created This plan of care was discussed with the patient. Patient gowned. Reassurance given. Two patient identifiers checked. Call light placed in reach. Side rails up x 1. Bed placed in lowest position. Brakes of bed on. Patient ready for evaluation- ED physician notified. --10:12 Ana María Vazquez R.N. 11:36 08/01/2016 Hydrocodone-APAP (Hydrocodone-Acetaminophen) PO 10/650 mg Tablets 2 tab given. Allergies verified, confirmed 5 rights and sedative warning given to the patient. --11:36 Ana María Vazquez R.N. 11:36 08/01/2016 Zofran ODT (Ondansetron) PO Tablets 4 mg given. Allergies verified and confirmed 5 rights. --11:36 Ana María Vazquez R.N. Reassurance given. The patient is calm. Overall patient status is the same- she states feels the same. ( Meds given as ordered, emotional support provided.). GI / : The patient reports nausea. The patient reports abdominal pain. Patient identifiers checked. Call light placed in reach. Side rails up x 1. --11:37 Ana María Vazquez R.N. 11:36 08/01/16. BP: 104/55 (regular adult cuff) taken on the left arm, via an automated monitor, while lying. HR: 67. RR: 12. O2 saturation: 100% on room air. Temp: 98.2 F (oral). --11:37 Ana María Vazquez R.N. Patient returned from [place]. (1248 PM). --12:48 Ana María Vazquez R.N. DISPOSITION / DISCHARGE Departure time: 13:19. Condition at departure: improved. ( Pt stated she has no pain). No learning barriers present. Discharge instructions provided and reviewed with the patient. Reviewed medication(s) side effects, precautions, dosing and course information. Prescription(s) given to the patient (zofran, sulfa, pryidium hydrocodone). Patient verbalized understanding. Written instructions provided in Malay. The patient was discharged by the physician. She was discharged home and unaccompanied at time of discharge. She left the Emergency Department ambulatory and via private vehicle. Patient driving. JHON COMA SCORE: [place] Coma Scale: 15- eyes open spontaneously (4); best verbal response- oriented x 4 (5); best motor response- obeys commands (6). --13:19 Donavan Santoro R.N. 13:14 08/01/16. BP: 97/55. HR: 80. RR: 15. O2 saturation: 100%. Pain level now 0/10. --13:19 Donavan Santoro R.N. Locked/Released at 08/01/2016 13:19 by Donavan Santoro R.N.
--- NOTE | 2016-08-01 13:10 | ED CLINICAL REPORT ---
Clinical Report - Physicians/Mid Levels [facility] [address] [place] [address] 08/01/2016 9:53 Patient: BG GARDUNO Time Seen: 10:28 Aug 01 2016. Arrived- By ambulance. Historian- patient and EMS personnel. CPT: ER phys charges level 4 (#[id number]). HISTORY OF PRESENT ILLNESS Chief Complaint: ABDOMINAL PAIN. At its maximum, severity described as moderate. When seen in the E.D., severity described as moderate. Modifying factors- (Urinating makes it worse.). It is described as "pain" and it is described as located in the right flank and the right abdomen and in the suprapubic area. 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 States right side lower pain that radiates to flank area. She woke up this morning "feeling like peeing raiser blades, burning" Here for evaluation). This started yesterday. She has had moderate nausea, vomiting. The vomiting has occurred several times, diarrhea and abdominal pain. No constipation. and is still present. The patient has had nausea and moderate vomiting. The vomiting has occurred several times. She has had moderate diarrhea. This has occurred several times. Similar symptoms previously: Recent medical care: Not recently seen/assessed. REVIEW OF SYSTEMS The patient has had difficulty with urination, and pain on urination. The patient has had urinary frequency. Denies current . Low L5 area bilateral back pain. NO flank pain. Has had vomiting and diarrhea several times in last 2 days. All systems otherwise negative, except as recorded above. PAST HISTORY Flank Pain. Peptic Ulcer Disease. UTI - Urinary Tract Infection. Chlamydia. LNMP - Last Normal Menstrual Period. Depression. Anxiety Reaction. --10:07 Ana María Vazquez R.N. ADDITIONAL SURGERIES: Tonsillectomy & Adenoidectomy. Medications: None. Allergies: Iodine. SOCIAL HISTORY Light tobacco smoker (cigarette)- less than 1/2 a pack per day. Occasional alcohol use; consumes beer occasionally. No drug use. ADDITIONAL NOTES The nursing notes have been reviewed. PHYSICAL EXAM Vital Signs: 08/01/2016 11:36 BP: 104/55. HR: 67. RR: 12. O2 saturation: 100%. Temp: 98.2 F. Appearance: Alert. Patient in mild distress. Eyes: Pupils equal, round and reactive to light. Eyes normal inspection. ENT: Ears normal. Nose normal. Pharynx normal. Neck: Normal inspection. Neck supple. CVS: Normal heart rate and rhythm. Heart sounds normal. Pulses normal. Respiratory: No respiratory distress. Breath sounds normal. Chest nontender. Abdomen: Soft. Mild tenderness in the suprapubic area and lower abdomen. Bowel sounds normal. No mass. Back: Normal inspection. No CVA tenderness. Skin: Skin warm. Normal skin color. No rash. Extremities: Extremities exhibit normal ROM. No lower extremity edema. Neuro: Oriented X 3. No motor deficit. No sensory deficit. Reflexes normal. LABS, X-RAYS, AND EKG Abdominal CT: No acute disease. Pelvic CT: No acute disease. Laboratory Tests: UA-Culture if indicated: (CONSTANTINO: 08/01/2016 10:00) ( MsgRcvd 08/01/2016 11:29) Final results Test Result Flag Units (Reference) URINE COLOR YELLOW URINE APPEARANCE SL CLOUDY URINE GLUCOSE NEGATIVE (NEGATIVE) URINE BILIRUBIN NEGATIVE (NEGATIVE) URINE KETONE NEGATIVE (NEGATIVE) URINE SPECIFIC GRAVITY 1.020 (1.010-1.030) URINE PH 7.0 (5.0-8.0) URINE PROTEIN NEGATIVE (NEGATIVE) URINE UROBILINOGEN 0.2 EU/dL (0.2-1.0) URINE NITRITE NEGATIVE (NEGATIVE) URINE BLOOD TRACE-LYSED (NEGATIVE) URINE LEUK ESTERASE NEGATIVE (NEGATIVE) URINE RBC 10-25 rbc/hpf (0-1) URINE WBC 1-3 wbc/hpf (0-1) URINE EPITHELIAL CELLS 1-3 EPI/hpf (0-5) URINE BACTERIA FEW (1+) (NONE SEEN) URINE COMMENT CULT NOT INDICATED URINE CULTURES ARE SET-UP BASED ON THE FOLLOWING CRITERIA:POSITIVE NITRITEPOSITIVE LEUKOCYTE ESTERASEGREATER THAN 10 WHITE BLOOD CELLSMODERATE (2+) OR GREATER BACTERIA Urine: (CONSTANTINO: 08/01/2016 10:00) ( MsgRcvd 08/01/2016 12:35) Final results Test Result Flag Units (Reference) URINE NEGATIVE . PROGRESS AND PROCEDURES Course of Care: Zofran 4 mg po Vicodin 2 po Patient is stable. Symptoms better. Patient/family counseled. Disposition: Discharged. CLINICAL IMPRESSION Acute urinary tract infection with cystitis and hematuria. Acute viral gastroenteritis. Microscopic hematuria. INSTRUCTIONS Rest. Do not work for two days until better. Warnings: Further evaluation is necessary. SEDATIVE MEDICATION: You were given sedative medication during your visit. Do not drive or operate dangerous machinery. GENERAL WARNINGS: Return or contact your physician immediately if your condition worsens or changes unexpectedly, if not improving as expected, or if other problems arise. Prescription Medications: Hydrocodone/APAP 5mg/325mg: take 1 to 2 orally every 6 hours as needed for pain. Dispense fifteen (15). No refills. Zofran (orally disintegrating tablets) 4 mg: take 1 orally every 4 hours as needed for nausea. Dispense ten (10). No refill. Trimethoprim-Sulfamethoxazole DS: take 1 tablet orally every 12 hours for 7 days. Dispense fourteen (14). No refills. Pyridium 200 mg: take 1 orally every 8 hours as needed for urinary problems. Dispense six (6). No refills. Substitution is permissible. Follow-up: Return to the emergency department if worse. Follow up with your doctor in three days if not better. Understanding of the discharge instructions verbalized by patient. (Electronically signed by Chris Morataya MD 08/02/2016 21:17)
--- NOTE | 2016-08-01 13:10 | ED CLINICAL REPORT ---
Clinical Report - Physicians/Mid Levels [facility] [address] [place] [address] 08/01/2016 9:53 Patient: BG GARDUNO Time Seen: 10:28 Aug 01 2016. Arrived- By ambulance. Historian- patient and EMS personnel. CPT: ER phys charges level 4 (#[id number]). HISTORY OF PRESENT ILLNESS Chief Complaint: ABDOMINAL PAIN. At its maximum, severity described as moderate. When seen in the E.D., severity described as moderate. Modifying factors- (Urinating makes it worse.). It is described as "pain" and it is described as located in the right flank and the right abdomen and in the suprapubic area. 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 States right side lower pain that radiates to flank area. She woke up this morning "feeling like peeing raiser blades, burning" Here for evaluation). This started yesterday. She has had moderate nausea, vomiting. The vomiting has occurred several times, diarrhea and abdominal pain. No constipation. and is still present. The patient has had nausea and moderate vomiting. The vomiting has occurred several times. She has had moderate diarrhea. This has occurred several times. Similar symptoms previously: Recent medical care: Not recently seen/assessed. REVIEW OF SYSTEMS The patient has had difficulty with urination, and pain on urination. The patient has had urinary frequency. Denies current . Low L5 area bilateral back pain. NO flank pain. Has had vomiting and diarrhea several times in last 2 days. All systems otherwise negative, except as recorded above. PAST HISTORY Flank Pain. Peptic Ulcer Disease. UTI - Urinary Tract Infection. Chlamydia. LNMP - Last Normal Menstrual Period. Depression. Anxiety Reaction. --10:07 Ana María Vazquez R.N. ADDITIONAL SURGERIES: Tonsillectomy & Adenoidectomy. Medications: None. Allergies: Iodine. SOCIAL HISTORY Light tobacco smoker (cigarette)- less than 1/2 a pack per day. Occasional alcohol use; consumes beer occasionally. No drug use. ADDITIONAL NOTES The nursing notes have been reviewed. PHYSICAL EXAM Vital Signs: 08/01/2016 11:36 BP: 104/55. HR: 67. RR: 12. O2 saturation: 100%. Temp: 98.2 F. Appearance: Alert. Patient in mild distress. Eyes: Pupils equal, round and reactive to light. Eyes normal inspection. ENT: Ears normal. Nose normal. Pharynx normal. Neck: Normal inspection. Neck supple. CVS: Normal heart rate and rhythm. Heart sounds normal. Pulses normal. Respiratory: No respiratory distress. Breath sounds normal. Chest nontender. Abdomen: Soft. Mild tenderness in the suprapubic area and lower abdomen. Bowel sounds normal. No mass. Back: Normal inspection. No CVA tenderness. Skin: Skin warm. Normal skin color. No rash. Extremities: Extremities exhibit normal ROM. No lower extremity edema. Neuro: Oriented X 3. No motor deficit. No sensory deficit. Reflexes normal. LABS, X-RAYS, AND EKG Abdominal CT: No acute disease. Pelvic CT: No acute disease. Laboratory Tests: UA-Culture if indicated: (CONSTANTINO: 08/01/2016 10:00) ( MsgRcvd 08/01/2016 11:29) Final results Test Result Flag Units (Reference) URINE COLOR YELLOW URINE APPEARANCE SL CLOUDY URINE GLUCOSE NEGATIVE (NEGATIVE) URINE BILIRUBIN NEGATIVE (NEGATIVE) URINE KETONE NEGATIVE (NEGATIVE) URINE SPECIFIC GRAVITY 1.020 (1.010-1.030) URINE PH 7.0 (5.0-8.0) URINE PROTEIN NEGATIVE (NEGATIVE) URINE UROBILINOGEN 0.2 EU/dL (0.2-1.0) URINE NITRITE NEGATIVE (NEGATIVE) URINE BLOOD TRACE-LYSED (NEGATIVE) URINE LEUK ESTERASE NEGATIVE (NEGATIVE) URINE RBC 10-25 rbc/hpf (0-1) URINE WBC 1-3 wbc/hpf (0-1) URINE EPITHELIAL CELLS 1-3 EPI/hpf (0-5) URINE BACTERIA FEW (1+) (NONE SEEN) URINE COMMENT CULT NOT INDICATED URINE CULTURES ARE SET-UP BASED ON THE FOLLOWING CRITERIA:POSITIVE NITRITEPOSITIVE LEUKOCYTE ESTERASEGREATER THAN 10 WHITE BLOOD CELLSMODERATE (2+) OR GREATER BACTERIA Urine: (CONSTANTINO: 08/01/2016 10:00) ( MsgRcvd 08/01/2016 12:35) Final results Test Result Flag Units (Reference) URINE NEGATIVE . PROGRESS AND PROCEDURES Course of Care: Zofran 4 mg po Vicodin 2 po Patient is stable. Symptoms better. Patient/family counseled. Disposition: Discharged. CLINICAL IMPRESSION Acute urinary tract infection with cystitis and hematuria. Acute viral gastroenteritis. Microscopic hematuria. INSTRUCTIONS Rest. Do not work for two days until better. Warnings: Further evaluation is necessary. SEDATIVE MEDICATION: You were given sedative medication during your visit. Do not drive or operate dangerous machinery. GENERAL WARNINGS: Return or contact your physician immediately if your condition worsens or changes unexpectedly, if not improving as expected, or if other problems arise. Prescription Medications: Hydrocodone/APAP 5mg/325mg: take 1 to 2 orally every 6 hours as needed for pain. Dispense fifteen (15). No refills. Zofran (orally disintegrating tablets) 4 mg: take 1 orally every 4 hours as needed for nausea. Dispense ten (10). No refill. Trimethoprim-Sulfamethoxazole DS: take 1 tablet orally every 12 hours for 7 days. Dispense fourteen (14). No refills. Pyridium 200 mg: take 1 orally every 8 hours as needed for urinary problems. Dispense six (6). No refills. Substitution is permissible. Follow-up: Return to the emergency department if worse. Follow up with your doctor in three days if not better. Understanding of the discharge instructions verbalized by patient. (Electronically signed by Chris Morataya MD 08/02/2016 21:17)
--- NOTE | 2016-08-02 21:18 | ED DISCHARGE INSTRUCTIONS ---
Patient: BG GARDUNO General Instructions [facility] VisitID: [id number] [place] [address] 21y, F Registration Date/Time: 08/01/2016 Acute urinary tract infection with cystitis and hematuria. Acute viral gastroenteritis. Microscopic hematuria. INSTRUCTIONS Rest. Do not work for two days until better. Warnings: Further evaluation is necessary. SEDATIVE MEDICATION: You were given sedative medication during your visit. Do not drive or operate dangerous machinery. GENERAL WARNINGS: Return or contact your physician immediately if your condition worsens or changes unexpectedly, if not improving as expected, or if other problems arise. Prescription Medications: Hydrocodone/APAP 5mg/325mg: take 1 to 2 orally every 6 hours as needed for pain. Dispense fifteen (15). No refills. Zofran (orally disintegrating tablets) 4 mg: take 1 orally every 4 hours as needed for nausea. Dispense ten (10). No refill. Trimethoprim-Sulfamethoxazole DS: take 1 tablet orally every 12 hours for 7 days. Dispense fourteen (14). No refills. Pyridium 200 mg: take 1 orally every 8 hours as needed for urinary problems. Dispense six (6). No refills. Substitution is permissible. Follow-up: Return to the emergency department if worse. Follow up with your doctor in three days if not better. Understanding of the discharge instructions verbalized by patient. ADDITIONAL INFORMATION Viral Gastroenteritis (6Yr-Adult) Gastroenteritis is another name for thestomach flu.It is most often caused by a virus that affects the stomach and intestinal tract. Symptoms include stomach cramping and fever, vomiting and/or diarrhea, and can last from 2 to 7 days. The danger from repeated vomiting or diarrhea is dehydration. This is the loss of too much water and minerals from the body. When this occurs, body fluids must be replaced. Antibiotics are not effective for this illness, but simple home treatment will be helpful. Home Care If symptoms are severe, rest at home for the next 24 hours. Avoid tobacco, caffeine, and alcohol use, which can worsen symptoms. Acetaminophen (Tylenol) or ibuprofen (Motrin, Advil) may be usedfor fever or pain unless another medication was prescribed. NOTE: If you have chronic liver or kidney disease or ever had a stomach ulcer or GI bleeding, talk with your doctor before using these medicines. Aspirin should never be used in anyone under 18 years of age who is ill with a fever. It may cause severe liver damage. If medicines for diarrhea or vomiting were prescribed, be sure they are takenonly as directed. If vomiting, drink small amounts of clear fluids (such as water, sports drinks, clear sodas) at frequent intervals to prevent dehydration. Start with 1 to 2 tablespoons every 10 minutes. Once vomiting stops, follow these guidelines: During The First 12 To 24 Hours follow the diet below: Beverages: Sport drinks like Gatorade, soft drinks without caffeine; maryjane ce, mineral water (plain or flavored), decaffeinated tea and coffee. Soups: Clear broth, consomm and bouillon Desserts: Plain gelatin (Jell-O), Popsicles and fruit juice bars. During The Next 24 Hours you may add the following to the above: Hot cereal, plain toast, bread, rolls, crackers Plain noodles, rice, mashed potatoes, chicken noodle or rice soup Unsweetened canned fruit (avoid pineapple), bananas Limit fat intake to less than 15 grams per day by avoiding margarine, butter, oils, mayonnaise, sauces, gravies, fried foods, peanut butter, meat, poultry, and fish. Limit fiber; avoid raw or cooked vegetables, fresh fruits (except bananas), and bran cereals. Limit caffeine and chocolate. Do not use spices or seasonings except salt. During The Next 24 Hours The patient can gradually resume a normal diet as symptoms lessen. Preventing Spread Hand washing with soap and water is the best way to prevent the spread of viruses. Caregivers should wash their hands before andafter touching the sick person. The sick person, as well as everyone in the family,should wash their hands after using the toilet and before meals. Clean the toilet after each use. People with diarrhea should not prepare food for others. If you are preparing your own foods, wash your hands before and after. Follow Up with your doctor as advised. Call your doctor if you are not improving over the next 2 to 3 days. If a stool (diarrhea) sample was taken, you may call in 2 days (or as directed) for the results. Get Prompt Medical Attention if any of the following occur: Increasing abdominal pain Continued vomiting (unable to keep liquids down) Frequent diarrhea (more than 5 times a day) Blood in vomit or stool (black or red color) Dark urine, reduced urine output, or extreme thirst Weakness, dizziness, fainting Drowsiness, confusion, stiff neck, or seizure Fever of 100.4F (38C) oral or higher, not better with fever medication New rash Bladder Infection,Female (Adult) A bladder infection ("cystitis" or "UTI") usually causes a constant urge to urinate and a burning when passing urine. Urine may be cloudy, smelly or dark. There may be pain in the lower abdomen. A bladder infection occurs when bacteria from the vaginal area enter the bladder opening (urethra). This can occur from sexual intercourse, wearing tight clothing, dehydration and other factors. Home Care: Drink lots of fluids (at least 6-8 glasses a day, unless you must restrict fluids for other medical reasons). This will force the medicine into your urinary system and flush the bacteria out of your body. Avoid sexual intercourse until your symptoms are gone. Avoid caffeine, alcohol and spicy foods. These can irritate the bladder. A bladder infection is treated with antibiotics. You may also be given Pyridium (generic = phenazopyridine) to reduce the burning sensation. This medicine will cause your urine to become a bright orange color. The orange urine may stain clothing. You may wear a pad or panty-liner to protect clothing. Preventing Future Infections: Always wipe from front to back after a bowel movement. Keep the genital area clean and dry. Drink plenty of fluids each day to avoid dehydration. Both sexual partners should wash before intercourse. Urinate right after intercourse to flush out the bladder. Wear cotton underwear and cotton-lined panty hose; avoid tight-fitting pants. If you are on control pills and are having frequent bladder infections, discuss with your doctor. Follow Up: Return to this facility or see your doctor if ALL symptoms are not gone after three days of treatment. Get Prompt Medical Attention if any of the following occur: Fever of 100.4F (38C) or higher, or as directed by your healthcare provider No improvement by the third day of treatment Increasing back or abdominal pain Repeated vomiting; unable to keep medicine down Weakness, dizziness or fainting Vaginal discharge Pain, redness or swelling in the labia (outer vaginal area) Ondansetron Oral disintegrating tablet What is this medicine? ONDANSETRON (on JOSEFA se rod) is used to treat nausea and vomiting caused by chemotherapy. It is also used to prevent or treat nausea and vomiting after surgery. How should I use this medicine? These tablets are made to dissolve in the mouth. Do not try to push the tablet through the foil backing. With dry hands, peel away the foil backing and gently remove the tablet. Place the tablet in the mouth and allow it to dissolve, then swallow. While you may take these tablets with water, it is not necessary to do so. Talk to your instructor nurse regarding the use of this medicine in children. Special care may be needed. What side effects may I notice from receiving this medicine? Side effects that you should report to your doctor or health hospice spiritual care coordinator as soon as possible: allergic reactions like skin rash, itching or hives, swelling of the face, lips, or tongue breathing problems dizziness fast or irregular heartbeat feeling faint or lightheaded, falls fever and chills swelling of the hands and feet tightness in the chest Side effects that usually do not require medical attention (report to your doctor or health hospice spiritual care coordinator if they continue or are bothersome): constipation or diarrhea headache What may interact with this medicine? Do not take this medicine with any of the following medications: -apomorphine -cisapride -dofetilide -dronedarone -pimozide -thioridazine -ziprasidone This medicine may also interact with the following medications: -carbamazepine -phenytoin -rifampicin -tramadol -other medicines that prolong the QT interval (cause an abnormal heart rhythm) What if I miss a dose? If you miss a dose, take it as soon as you can. If it is almost time for your next dose, take only that dose. Do not take double or extra doses. Where should I keep my medicine? Keep out of the reach of children. Store between 2 and 30 degrees C (36 and 86 degrees F). Throw away any unused medicine after the expiration date. What should I tell my health care provider before I take this medicine? They need to know if you have any of these conditions: heart disease history of irregular heartbeat liver disease low levels of magnesium or potassium in the blood an unusual or allergic reaction to ondansetron, granisetron, other medicines, foods, dyes, or preservatives or trying to get breast-feeding What should I watch for while using this medicine? Check with your doctor or health hospice spiritual care coordinator as soon as you can if you have any sign of an allergic reaction. You have been given the following additional information: Gastroenteritis, Viral (6Y-Adult) Bladder Infection, Female (Adult) Ondansetron Oral disintegrating tablet Rest. Do not work for two days until better. (Electronically signed by Chris Morataya MD 08/02/2016 21:17)
--- NOTE | 2016-08-02 21:18 | ED MAR SUMMARY ---
..... Medication Administration Record [facility] [address] [place] [address] Patient: BG GARDUNO Visit ID: [id number] 21y, F Weight: 111.1 kg Height/Length: 68 in BMI: 37.3 ALLERGIES: Iodine Given 11:36 08/01/2016 Ana María Vazquez R.N. Medication Administered: HYDROCODONE-APAP [PO] (HYDROCODONE-ACETAMINOPHEN), Dose: 2 tab 10/650 mg Tablets PO. Medication Ordered: Hydrocodone-APAP PO 10/650 mg (NOW). Given 11:36 08/01/2016 Ana María Vazquez RLatriceNLatrice Medication Administered: ZOFRAN ODT [PO] (ONDANSETRON), Dose: 4 mg Tablets PO. Medication Ordered: Zofran ODT PO 4 mg (NOW).
--- NOTE | 2016-08-02 21:18 | ED MAR SUMMARY ---
..... Medication Administration Record [facility] [address] [place] [address] Patient: BG GARDUNO Visit ID: [id number] 21y, F Weight: 111.1 kg Height/Length: 68 in BMI: 37.3 ALLERGIES: Iodine Given 11:36 08/01/2016 Ana María Vazquez R.N. Medication Administered: HYDROCODONE-APAP [PO] (HYDROCODONE-ACETAMINOPHEN), Dose: 2 tab 10/650 mg Tablets PO. Medication Ordered: Hydrocodone-APAP PO 10/650 mg (NOW). Given 11:36 08/01/2016 Ana María Vazquez RLatriceNLatrice Medication Administered: ZOFRAN ODT [PO] (ONDANSETRON), Dose: 4 mg Tablets PO. Medication Ordered: Zofran ODT PO 4 mg (NOW).
--- NOTE | 2016-08-02 21:18 | ED MED RECONCILIATION SUMMARY ---
Patient: BG GARDUNO Medication Reconciliation Report [facility] VisitID: [id number] [place] [address] 21y, F Registration Date/Time: 08/01/2016 Weight: 111.1 kg Height/Length: 68 in. BMI: 37.3 ALLERGIES: Iodine The patient's Home Medications are listed below: NONE. The source(s) of the original Home Medication information: patient The following Medications were given to the patient in the Emergency Department: Hydrocodone-APAP [PO] PO 2 tab, administered: 08/01/2016 11:36:00 AM Zofran ODT [PO] PO 4 mg, administered: 08/01/2016 11:36:00 AM The following Medications were prescribed to the patient: Hydrocodone/APAP 5mg/325mg: take 1 to 2 orally every 6 hours as needed for pain. Dispense fifteen (15). No refills. -- Chris Morataya MD Zofran (orally disintegrating tablets) 4 mg: take 1 orally every 4 hours as needed for nausea. Dispense ten (10). No refill. -- Chris Morataya MD Trimethoprim-Sulfamethoxazole DS: take 1 tablet orally every 12 hours for 7 days. Dispense fourteen (14). No refills. -- Chris Morataya MD Pyridium 200 mg: take 1 orally every 8 hours as needed for urinary problems. Dispense six (6). No refills. Substitution is permissible. -- Chris Morataya MD
--- NOTE | 2016-08-02 21:18 | ED MED RECONCILIATION SUMMARY ---
Patient: BG GARDUNO Medication Reconciliation Report [facility] VisitID: [id number] [place] [address] 21y, F Registration Date/Time: 08/01/2016 Weight: 111.1 kg Height/Length: 68 in. BMI: 37.3 ALLERGIES: Iodine The patient's Home Medications are listed below: NONE. The source(s) of the original Home Medication information: patient The following Medications were given to the patient in the Emergency Department: Hydrocodone-APAP [PO] PO 2 tab, administered: 08/01/2016 11:36:00 AM Zofran ODT [PO] PO 4 mg, administered: 08/01/2016 11:36:00 AM The following Medications were prescribed to the patient: Hydrocodone/APAP 5mg/325mg: take 1 to 2 orally every 6 hours as needed for pain. Dispense fifteen (15). No refills. -- Chris Morataya MD Zofran (orally disintegrating tablets) 4 mg: take 1 orally every 4 hours as needed for nausea. Dispense ten (10). No refill. -- Chris Morataya MD Trimethoprim-Sulfamethoxazole DS: take 1 tablet orally every 12 hours for 7 days. Dispense fourteen (14). No refills. -- Chris Morataya MD Pyridium 200 mg: take 1 orally every 8 hours as needed for urinary problems. Dispense six (6). No refills. Substitution is permissible. -- Chris Morataya MD
== END 2016-08-01 13:18 | disposition home or self-care (01) ==
LOC: ED SRH 09:51
DX: N30.01 Acute cystitis with hematuria (principal); A08.4 Viral intestinal infection, unspecified; Z91.041 Radiographic dye allergy status; Z72.0 Tobacco use
CPT/HCPCS: 90004; 92760; 92761; 92762; 92763; 92764; 92765; 92766; 92767; 93070

== ENCOUNTER 2016-08-05 08:59 | Emergency (ER) | payer OTHER ==
--- NOTE | 2016-08-05 16:12 | ED ORDER SUMMARY ---
..... Patient: BG GARDUNO OrderSheet [facility] VisitID: [id number] [place] [address] 21y, F Registration Date/Time: 08/05/2016 ORDER SHEET Weight: 111.1 kg (stated) Allergies: Iodine GENERAL ORDERS: UA-Culture if indicated Urgent (10:50 08/05/2016 Gertrudis R.N. per protocol) (Ack 10:52 OSnell) (11:27 Gertrudis R.N.) - (need the tube for herpes transport plz) (11:05 08/05/2016 Doc BARTHOLOMEW) (Ack 11:08 OSnell) (12:23 SReitz R.N.) CBC w Diff Urgent (11:06 08/05/2016 Doc BARTHOLOMEW) (Ack 11:08 OSnell) (12:12 Gertrudis R.N.) CMP Urgent (11:06 08/05/2016 Doc BARTHOLOMEW) (Ack 11:08 OSnell) (12:12 SReitz R.N.) Pelvic Exam Setup (11:06 08/05/2016 Doc BARTHOLOMEW) (Ack 11:08 OSnell) (12:23 SReitz R.N.) Culture, Herpes (Buttock) (SWAB) (R LABIUM MAGUS) Urgent (12:37 08/05/2016 Doc BARTHOLOMEW) (Ack 12:51 OSnell) (14:21 SReitz R.N.) GC/Chlamydia (Cervix) (SWAB) Urgent (12:39 08/05/2016 Doc BARTHOLOMEW) (Ack 12:51 OSnell) (14:21 SReitz R.N.) Wet Prep (Vaginal) (SWAB) Urgent (12:39 08/05/2016 Doc BARTHOLOMEW) (Ack 12:51 OSnell) (14:21 SReitz R.N.) UA-Culture if indicated (this is the cath sample) Urgent (14:41 08/05/2016 Doc BARTHOLOMEW) (Ack 14:44 OSnell) MEDICATION ORDERS: Ceftriaxone IM 250 mg (NOW) (15:35 08/05/2016 Doc BARTHOLOMEW) (Ack 15:50 Gertrudis R.N.) (16:10 Pooja Camacho) Doxycycline Monohydrate PO 100 mg (NOW) (15:36 08/05/2016 Doc BARTHOLOMEW) (Ack 15:50 Gertrudis Camacho) (16:10 Pooja Camacho) IV FLUIDS: ORDER SHEET NOTES: [Electronically signed by Oneil Box R.N. (15:56 08/06/2016)] [Electronically signed by Jono Littlejohn MD (12:06 08/07/2016)] [Electronically locked/signed by Oneil Box R.N. (15:56 08/06/2016)]
--- NOTE | 2016-08-05 16:12 | ED NURSING NOTES ---
Clinical Report - Nurses [facility] [address] [place] [address] 08/05/2016 9:00 Patient: BG GARDUNO TRIAGE Triage time 09:47. Acuity: LEVEL 5. Chief Complaint: ABDOMINAL PAIN and (right flank pain). SEPSIS SCREEN: Sepsis Screen. Negative (no infection suspected/documented). JUAN DAVID COMA SCORE: Juan David Coma Scale: 15- eyes open spontaneously (4); best verbal response- oriented x 4 (5); best motor response- obeys commands (6). --09:57 Regla Stephens R.N. 09:47 08/05/16. BP: 99/45. HR: 80. RR: 16. O2 saturation: 98%. Temp: 98.1 F. Pain level now: 9/10. Additional comments: Pt states her pain is 9.5/10, located in r flank area. --09:57 Regla Stephens R.N. Acuity: LEVEL 3. --10:57 Barbara Campos R.N. Weight: 111.1 kg stated. Height/Length: 68 inches Per Patient. BMI: 37.3. --09:56 Regla Stephens R.N. Medications Antibiotic. --09:53 Regla Stephens R.N. "the that makes you pee orange". --09:53 Regla Stephens R.N. Hydrocodone. --09:54 Regla Stephens R.N. Allergies Iodine. --09:53 Regla Stephens R.N. History Arrived by private vehicle. Historian: patient. Onset. (6 days ago). ( Pt states she came in last sunday for same reason, states her "pee was good", and they couldn't find anything wrong but she is still having pain, and states she has had kidney stones in the past, and this pain she is having now feels the same. Pt states she is "severely nauseated" as well, though is not vomiting, etc. at this time. Pt also states "that it hurts so bad that I'm having a really hard time breathing".). She has had nausea. 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 SOCIAL HX: Light tobacco smoker (cigarette)- less than 1/2 a pack per day. Alcohol use; consumes liquor occasionally. History of drug use. (Denies). FALL RISK ASSESSMENT: Fall risk assessment completed. No fall risk identified. NUTRITIONAL RISK ASSESSMENT: The nutritional risk assessment revealed no deficiencies. FUNCTIONAL ASSESSMENT: Functional assessment: no impairments noted. LEARNING NEEDS ASSESSMENT: The learning needs assessment revealed no barriers. SKIN INTEGRITY ASSESSMENT: Skin integrity risk assessment completed. No skin integrity risk identified. --09:57 Regla Stephens R.N. PROBLEMS: Nephrolithiasis. --09:55 Regla Stephens R.N. Gastroenteritis. Flank Pain. Peptic Ulcer Disease. UTI - Urinary Tract Infection. Chlamydia. LNMP - Last Normal Menstrual Period. Polycystic Ovary Disease. Depression. Anxiety Reaction. --09:58 Regla Stephens R.N. Interventions ID band on patient. To room. --09:57 Regla Stephens R.N. PHYSICAL ASSESSMENT GENERAL / NEURO / PSYCH: Alert. Oriented X 4. Appears in no acute distress. HEENT: Mucous membranes are pink. RESPIRATORY: Respirations not labored. CVS: Capillary refill less than 2 seconds. SKIN: Skin is warm and dry. --10:57 Barbara Campos R.N. NURSING PROGRESS NOTES Care transferred and report given (from Regla, RN). --10:48 Barbara Campos R.N. Patient ID band checked for patient name, birthdate and medical record number: patient confirmed. Instructions provided to collect clean catch urine and patient verbalized understanding. Clean catch urine collected with return of yellow-colored clear urine; sample sent to lab for urinalysis. Specimen labeled in the presence of the patient. ( First contact with pt. Pt. appears to be resting quietly.). --10:49 Barbara Campos R.N. 10:50 08/05/16. BP: 109/61. HR: 69. RR: 16. O2 saturation: 96%. Pain level now 12/24. --10:50 Barbara Campos R.N. 12:11 08/05/16. BP: 108/63. HR: 70. RR: 16. O2 saturation: 98%. --12:12 Barbara Campos R.N. Manual Control Auger Press Operator provided for the genital exam by the physician. --12:43 Barbara Campos R.N. Patient ID band checked for patient name, birthdate and medical record number: patient confirmed. Instructions provided to collect clean catch urine and patient verbalized understanding. Catheterized urine collected with return of yellow-colored clear urine; sample sent to lab for urinalysis. Specimen labeled in the presence of the patient. --12:43 Barbara Campos R.N. Patient informed about reason for wait and about plan of care. --12:43 Barbara Campos R.N. 14:21 08/05/16. BP: 101/50. HR: 72. RR: 16. O2 saturation: 97%. --14:21 Barbara Campos R.N. Overall patient status- she states feels better. --14:21 Barbara Campos R.N. 16:00 08/05/2016 Ceftriaxone IM 250 mg given. Given in the left anterior lateral thigh. Allergies verified and confirmed 5 rights. --16:10 Oneil Box R.N. 16:00 08/05/2016 DOXYCYCLINE MONOHYDRATE PO Tablets 100 mg given. Allergies verified and confirmed 5 rights. --16:10 Oneil Box R.N. DISPOSITION / DISCHARGE 16:11 08/05/16. Departure time: 1607. Condition at departure: improved and stable. No learning barriers present. Discharge instructions provided and reviewed with the patient. Reviewed medication(s) side effects, precautions, dosing and course information. Prescription(s) given to the patient. Patient verbalized understanding. Written instructions provided in Taiwanese. The patient was discharged by the physician. She was discharged home. She left the Emergency Department ambulatory and via private vehicle. Patient driving. --16:12 Oneil Box R.N. 16:10 08/05/16. BP: 115/71. HR: 75. RR: 16. O2 saturation: 97% on room air. Temp: 97.6 F (oral). Pain level now 5/10. --16:12 Oneil Box R.N. Locked/Released at 08/06/2016 15:56 by Oneil Box R.N.
--- NOTE | 2016-08-05 16:12 | ED CLINICAL REPORT ---
Clinical Report - Physicians/Mid Levels [facility] [address] [place] [address] 08/05/2016 9:00 Patient: BG GARDUNO Time Seen: 10:56. Arrived- By private vehicle. Historian- patient. HISTORY OF PRESENT ILLNESS Chief Complaint: ABDOMINAL PAIN and FLANK PAIN and DYSURIA. This started several days ago and is still present. It was gradual in onset and has been waxing/waning. At its maximum, severity described as moderate. When seen in the E.D., severity described as moderate. Modifying factors. Not worsened by anything. Not relieved by anything. It is described as "pain" and it is described as generalized in location and located in the right flank. No nausea, vomiting or diarrhea. Similar symptoms previously: Once. Recent medical care: The patient was seen recently at this facility in the emergency department. ( Dx UTI and microscopic hematuria Rx Septra). REVIEW OF SYSTEMS Last normal menstrual period- No 2 days ago. No fever, double vision, sore throat, chest pain or cough. No difficulty breathing. The patient has had urinary frequency. She has had difficulty with urination. PAST HISTORY PAST HISTORY Flank Pain. Peptic Ulcer Disease. UTI - Urinary Tract Infection. Chlamydia. LNMP - Last Normal Menstrual Period. Depression. Anxiety Reaction. ADDITIONAL SURGERIES: Tonsillectomy & Adenoidectomy. ADDITIONAL NOTES The nursing notes have been reviewed. PHYSICAL EXAM Vital Signs: 08/05/2016 16:10 BP: 115/71. HR: 75. RR: 16. O2 saturation: 97%. Temp: 97.6 F. 08/05/2016 14:21 BP: 101/50. HR: 72. RR: 16. O2 saturation: 97%. 08/05/2016 12:11 BP: 108/63. HR: 70. RR: 16. O2 saturation: 98%. 08/05/2016 10:50 BP: 109/61. HR: 69. RR: 16. O2 saturation: 96%. 08/05/2016 09:47 BP: 99/45. HR: 80. RR: 16. O2 saturation: 98%. Temp: 98.1 F. Pain level now: 9/10. Appearance: (Pt's pain complaint is 9/10. She appears comfortable). Eyes: Eyes normal inspection. ENT: Pharynx normal. CVS: Normal heart rate and rhythm. Heart sounds normal. Respiratory: No respiratory distress. Breath sounds normal. Abdomen: Mild tenderness diffusely. No rebound tenderness or guarding. (No fermoral or inguinal hernias). Back: Mild CVA tenderness on the right and left. : Bimanual exam normal. (Extrnal exam - one small excoriation on R labia which is cultured for herpes.). Skin: Skin warm. Normal skin color. Extremities: Extremities exhibit normal ROM. No lower extremity edema. LABS, X-RAYS, AND EKG Laboratory Tests: UA-Culture if indicated: (CONSTANTINO: 08/05/2016 12:30) ( [facility] 08/05/2016 15:24) Final results Test Result Flag Units (Reference) URINE COLOR YELLOW URINE APPEARANCE CLEAR URINE GLUCOSE NEGATIVE (NEGATIVE) URINE BILIRUBIN NEGATIVE (NEGATIVE) URINE KETONE NEGATIVE (NEGATIVE) URINE SPECIFIC GRAVITY 1.020 (1.010-1.030) URINE PH 7.5 (5.0-8.0) URINE PROTEIN NEGATIVE (NEGATIVE) URINE UROBILINOGEN 0.2 EU/dL (0.2-1.0) URINE NITRITE POSITIVE (NEGATIVE) URINE BLOOD NEGATIVE (NEGATIVE) URINE LEUK ESTERASE TRACE (NEGATIVE) URINE RBC NONE SEEN rbc/hpf (0-1) URINE WBC 1-3 wbc/hpf (0-1) URINE EPITHELIAL CELLS 0-1 EPI/hpf (0-5) URINE BACTERIA MODERATE (2+ TO 3+) (NONE SEEN) URINE COMMENT CULTURE INDICATED URINE CULTURES ARE SET-UP BASED ON THE FOLLOWING CRITERIA:POSITIVE NITRITEPOSITIVE LEUKOCYTE ESTERASEGREATER THAN 10 WHITE BLOOD CELLSMODERATE (2+) OR GREATER BACTERIA UA-Culture if indicated: (CONSTANTINO: 08/05/2016 10:00) ( Mscvd 08/05/2016 11:22) Final results Test Result Flag Units (Reference) URINE COLOR ORANGE URINE APPEARANCE CLOUDY URINE GLUCOSE (NEGATIVE) UNABLE TO REPORT DUE TO URINE COLOR INTERFERENCE URINE BILIRUBIN (NEGATIVE) UNABLE TO REPORT DUE TO URINE COLOR INTERFERENCE URINE KETONE (NEGATIVE) UNABLE TO REPORT DUE TO URINE COLOR INTERFERENCE URINE SPECIFIC GRAVITY (1.010-1.030) UNABLE TO REPORT DUE TO URINE COLOR INTERFERENCE URINE PH (5.0-8.0) UNABLE TO REPORT DUE TO URINE COLOR INTERFERENCE URINE PROTEIN (NEGATIVE) UNABLE TO REPORT DUE TO URINE COLOR INTERFERENCE URINE UROBILINOGEN EU/dL (0.2-1.0) UNABLE TO REPORT DUE TO URINE COLOR INTERFERENCE URINE NITRITE (NEGATIVE) UNABLE TO REPORT DUE TO URINE COLOR INTERFERENCE URINE BLOOD (NEGATIVE) UNABLE TO REPORT DUE TO URINE COLOR INTERFERENCE URINE LEUK ESTERASE (NEGATIVE) UNABLE TO REPORT DUE TO URINE COLOR INTERFERENCE URINE RBC 1-3 rbc/hpf (0-1) URINE WBC 5-10 wbc/hpf (0-1) URINE EPITHELIAL CELLS >15 EPI/hpf (0-5) URINE BACTERIA MANY (4+) (NONE SEEN) URINE COMMENT CULTURE INDICATED EPITHELIAL CONTAMINATION. NO CULTURE SETUPPlease call laboratory if culture wanted.URINE CULTURES ARE SET-UP BASED ON THE FOLLOWING CRITERIA:POSITIVE NITRITEPOSITIVE LEUKOCYTE ESTERASEGREATER THAN 10 WHITE BLOOD CELLSMODERATE (2+) OR GREATER BACTERIA CBC w Diff: (CONSTANTINO: 08/05/2016 11:55) ( MsgRcvd 08/05/2016 12:22) Final results Test Result Flag Units (Reference) WHITE BLOOD COUNT 9.7 K/uL (4.5-11.5) RED BLOOD COUNT 4.88 M/uL (4.00-5.20) HEMOGLOBIN 14.4 gm/dL (12.0-16.0) HEMATOCRIT 42.3 % (36.0-46.0) MEAN CELL VOLUME 87 fL (80-100) MEAN CORPUSCULAR HGB 30 pg (26-34) MEAN CORPUSCULAR HGB CONC 34 g/dL (31-37) RED CELL DISTRIBUTION WIDTH 12.8 % (11.6-14.8) PLATELET COUNT 243 K/uL (150-400) NEUTROPHIL % 55.5 % (50-75) LYMPH % 35.4 % (25-40) MONO % 5.6 % (3-14) EOSINOPHIL % 2.7 % (0-4) BASOPHIL % 0.8 % (0-2) CMP: (CONSTANTINO: 08/05/2016 11:55) ( MsgRcvd 08/05/2016 12:28) Final results Test Result Flag Units (Reference) GLUCOSE 91 mg/dL (70-110) BUN 10 mg/dL (7-18) CREATININE 0.8 mg/dL (0.6-1.3) Estimated GFR >60 mL/min Estimated GFR- >60 mL/min Note: Persistent reduction over 3 months in eGFR<60 mL/min/1.73 m2 defines CKD. Patients with eGFR values>=60 mL/min/1.73 m2 may also have CKD if evidence ofpersistent proteinuria. Additional information may be foundat www.kidney.org. SODIUM 138 mmol/L (136-145) POTASSIUM 4.0 mmol/L (3.5-5.1) CHLORIDE 103 mmol/L (98-107) CARBON DIOXIDE 24 mmol/L (21-32) CALCIUM 9.4 mg/dL (8.5-10.1) TOTAL PROTEIN 7.2 g/dL (6.4-8.2) ALBUMIN 3.7 g/dL (3.3-5.0) BILIRUBIN, TOTAL 0.5 mg/dL (0.0-1.0) ALKALINE PHOSPHATASE 65 U/L (46-116) AST (SGOT) 36 U/L (15-37) ALT (SGPT) 75 U/L (12-78) [id number]: (CONSTANTINO: 08/05/2016 12:30) ( [facility] 08/07/2016 06:08) Final results Specimen Comment: R LABIUM MAGUS SPECIMEN DESCRIPTION: SWAB Test Result Flag Units (Reference) CHLAMYDIA TRACHOMATIS JAY JAY Negative NEISSERIA GONORRHOEAE JAY JAY Negative Performed at: [address] [id number] Patient Service Rep: Tito Bose MD, Phone: [phone] Culture, Urine: (CONSTANTINO: 08/05/2016 12:30) ( NegRcvd 08/07/2016 07:45) Final results Test Result Flag Units (Reference) CULTURE, URINE DATE: 08/07/16 PRELIM REPORT: FINAL REPORT -- ESCCOL QUANTITATIVE URINE GROWTH: GREATER THAN 100,000 CFU/mL AMOXICILLIN/CLAVULANATE AMPICILLIN R AMPICILLIN/SULBACTAM R CEFAZOLIN S CEFTRIAXONE S CEFEPIME S CEFUROXIME CIPROFLOXACIN S ERTAPENEM S GENTAMICIN S IMIPENEM S LEVOFLOXACIN S MEROPENEM S NITROFURANTOIN S TETRACYCLINE PIP/TAZO S TRIMETHOPRIM/SULFAMETHOXAZOLE R Wet Prep: (CONSTANTINO: 08/05/2016 12:30) ( MsgRcvd 08/05/2016 12:54) Final results Specimen Comment: R LABIUM MAGUS SPECIMEN DESCRIPTION: SWAB Test Result Flag Units (Reference) WET MOUNT CLUE CELLS:: NONE EPITHELIAL CELLS: MANY SOURCE?: RIGHT LABIA WHITE BLOOD CELLS: FEW TRICHOMONAS:: NONE -- YEAST:: NONE . PROGRESS AND PROCEDURES Course of Care: 12:56 08/05/16. Pelvic remarkable only for R labium 14:41 08/05/16. Cath UA not back Pt not gives the hx of frequent and prolonged bubble baths. The pt could well have urethritis either from an STD or a chemical urethritis. She will be treated for both. She does not appear to have an acute surgical abdomen or renal colic. Disposition: Discharged. Condition: stable. CLINICAL IMPRESSION Abdominal pain of unknown cause. Acute nonspecific urethritis INSTRUCTIONS Do not work today. ([facility]IMARY CARE LAB TESTS NORMAL DON'T DO BUBBLE BATH). Prescription Medications: Doxycycline 100 mg: Take 1 capsule orally every 12 hours for 10 days. No refill. Understanding of the discharge instructions verbalized by patient. Follow-up with: [facility], , , [address], , [place], [address] Follow up. Call for an appointment. (Electronically signed by Jono Littlejohn MD 08/07/2016 12:06) Addenda for BG GARDUNO VisitID: [id number] Date: 08/05/2016 08/06/2016 16:12 Pt calling ED, states she lost her doxycycline RX from yesterday and is requesting it be replaced. Discussed with Francis Burgess MD, ok to replace antibx script and call in for pt. Doxycycline 100mg 1 tab PO BID X10 days. RX called into [facility] pt per patient's preference. (Electronically signed by Oneil Box R.N. - 08/06/2016 16:12)
--- NOTE | 2016-08-05 16:12 | ED ORDER SUMMARY ---
..... Patient: BG GARDUNO OrderSheet [facility] VisitID: [id number] [place] [address] 21y, F Registration Date/Time: 08/05/2016 ORDER SHEET Weight: 111.1 kg (stated) Allergies: Iodine GENERAL ORDERS: UA-Culture if indicated Urgent (10:50 08/05/2016 Gertrudis R.N. per protocol) (Ack 10:52 OSnell) (11:27 Gertrudis R.N.) - (need the tube for herpes transport plz) (11:05 08/05/2016 Doc BARTHOLOMEW) (Ack 11:08 OSnell) (12:23 SReitz R.N.) CBC w Diff Urgent (11:06 08/05/2016 Doc BARTHOLOMEW) (Ack 11:08 OSnell) (12:12 Gertrudis R.N.) CMP Urgent (11:06 08/05/2016 Doc BARTHOLOMEW) (Ack 11:08 OSnell) (12:12 SReitz R.N.) Pelvic Exam Setup (11:06 08/05/2016 Doc BARTHOLOMEW) (Ack 11:08 OSnell) (12:23 SReitz R.N.) Culture, Herpes (Buttock) (SWAB) (R LABIUM MAGUS) Urgent (12:37 08/05/2016 Doc BARTHOLOMEW) (Ack 12:51 OSnell) (14:21 SReitz R.N.) GC/Chlamydia (Cervix) (SWAB) Urgent (12:39 08/05/2016 Doc BARTHOLOMEW) (Ack 12:51 OSnell) (14:21 SReitz R.N.) Wet Prep (Vaginal) (SWAB) Urgent (12:39 08/05/2016 Doc BARTHOLOMEW) (Ack 12:51 OSnell) (14:21 SReitz R.N.) UA-Culture if indicated (this is the cath sample) Urgent (14:41 08/05/2016 Doc BARTHOLOMEW) (Ack 14:44 OSnell) MEDICATION ORDERS: Ceftriaxone IM 250 mg (NOW) (15:35 08/05/2016 Doc BARTHOLOMEW) (Ack 15:50 Gertrudis R.N.) (16:10 Pooja Camacho) Doxycycline Monohydrate PO 100 mg (NOW) (15:36 08/05/2016 Doc BARTHOLOMEW) (Ack 15:50 Gertrudis Camacho) (16:10 Pooja Camacho) IV FLUIDS: ORDER SHEET NOTES: [Electronically signed by Oneil Box R.N. (15:56 08/06/2016)] [Electronically signed by Jono Littlejohn MD (12:06 08/07/2016)] [Electronically locked/signed by Oneil Box R.N. (15:56 08/06/2016)]
--- NOTE | 2016-08-05 16:12 | ED CLINICAL REPORT ---
Clinical Report - Physicians/Mid Levels [facility] [address] [place] [address] 08/05/2016 9:00 Patient: BG GARDUNO Time Seen: 10:56. Arrived- By private vehicle. Historian- patient. HISTORY OF PRESENT ILLNESS Chief Complaint: ABDOMINAL PAIN and FLANK PAIN and DYSURIA. This started several days ago and is still present. It was gradual in onset and has been waxing/waning. At its maximum, severity described as moderate. When seen in the E.D., severity described as moderate. Modifying factors. Not worsened by anything. Not relieved by anything. It is described as "pain" and it is described as generalized in location and located in the right flank. No nausea, vomiting or diarrhea. Similar symptoms previously: Once. Recent medical care: The patient was seen recently at this facility in the emergency department. ( Dx UTI and microscopic hematuria Rx Septra). REVIEW OF SYSTEMS Last normal menstrual period- No 2 days ago. No fever, double vision, sore throat, chest pain or cough. No difficulty breathing. The patient has had urinary frequency. She has had difficulty with urination. PAST HISTORY PAST HISTORY Flank Pain. Peptic Ulcer Disease. UTI - Urinary Tract Infection. Chlamydia. LNMP - Last Normal Menstrual Period. Depression. Anxiety Reaction. ADDITIONAL SURGERIES: Tonsillectomy & Adenoidectomy. ADDITIONAL NOTES The nursing notes have been reviewed. PHYSICAL EXAM Vital Signs: 08/05/2016 16:10 BP: 115/71. HR: 75. RR: 16. O2 saturation: 97%. Temp: 97.6 F. 08/05/2016 14:21 BP: 101/50. HR: 72. RR: 16. O2 saturation: 97%. 08/05/2016 12:11 BP: 108/63. HR: 70. RR: 16. O2 saturation: 98%. 08/05/2016 10:50 BP: 109/61. HR: 69. RR: 16. O2 saturation: 96%. 08/05/2016 09:47 BP: 99/45. HR: 80. RR: 16. O2 saturation: 98%. Temp: 98.1 F. Pain level now: 9/10. Appearance: (Pt's pain complaint is 9/10. She appears comfortable). Eyes: Eyes normal inspection. ENT: Pharynx normal. CVS: Normal heart rate and rhythm. Heart sounds normal. Respiratory: No respiratory distress. Breath sounds normal. Abdomen: Mild tenderness diffusely. No rebound tenderness or guarding. (No fermoral or inguinal hernias). Back: Mild CVA tenderness on the right and left. : Bimanual exam normal. (Extrnal exam - one small excoriation on R labia which is cultured for herpes.). Skin: Skin warm. Normal skin color. Extremities: Extremities exhibit normal ROM. No lower extremity edema. LABS, X-RAYS, AND EKG Laboratory Tests: UA-Culture if indicated: (CONSTANTINO: 08/05/2016 12:30) ( [facility] [place] [place]/05[place] 15:24) Final results Test Result Flag Units (Reference) URINE COLOR YELLOW URINE APPEARANCE CLEAR URINE GLUCOSE NEGATIVE (NEGATIVE) URINE BILIRUBIN NEGATIVE (NEGATIVE) URINE KETONE NEGATIVE (NEGATIVE) URINE SPECIFIC GRAVITY 1.020 (1.010-1.030) URINE PH 7.5 (5.0-8.0) URINE PROTEIN NEGATIVE (NEGATIVE) URINE UROBILINOGEN 0.2 EU/dL (0.2-1.0) URINE NITRITE POSITIVE (NEGATIVE) URINE BLOOD NEGATIVE (NEGATIVE) URINE LEUK ESTERASE TRACE (NEGATIVE) URINE RBC NONE SEEN rbc/hpf (0-1) URINE WBC 1-3 wbc/hpf (0-1) URINE EPITHELIAL CELLS 0-1 EPI/hpf (0-5) URINE BACTERIA MODERATE (2+ TO 3+) (NONE SEEN) URINE COMMENT CULTURE INDICATED URINE CULTURES ARE SET-UP BASED ON THE FOLLOWING CRITERIA:POSITIVE NITRITEPOSITIVE LEUKOCYTE ESTERASEGREATER THAN 10 WHITE BLOOD CELLSMODERATE (2+) OR GREATER BACTERIA UA-Culture if indicated: (CONSTANTINO: 08/05/2016 10:00) ( Mscvd 08/05/2016 11:22) Final results Test Result Flag Units (Reference) URINE COLOR ORANGE URINE APPEARANCE CLOUDY URINE GLUCOSE (NEGATIVE) UNABLE TO REPORT DUE TO URINE COLOR INTERFERENCE URINE BILIRUBIN (NEGATIVE) UNABLE TO REPORT DUE TO URINE COLOR INTERFERENCE URINE KETONE (NEGATIVE) UNABLE TO REPORT DUE TO URINE COLOR INTERFERENCE URINE SPECIFIC GRAVITY (1.010-1.030) UNABLE TO REPORT DUE TO URINE COLOR INTERFERENCE URINE PH (5.0-8.0) UNABLE TO REPORT DUE TO URINE COLOR INTERFERENCE URINE PROTEIN (NEGATIVE) UNABLE TO REPORT DUE TO URINE COLOR INTERFERENCE URINE UROBILINOGEN EU/dL (0.2-1.0) UNABLE TO REPORT DUE TO URINE COLOR INTERFERENCE URINE NITRITE (NEGATIVE) UNABLE TO REPORT DUE TO URINE COLOR INTERFERENCE URINE BLOOD (NEGATIVE) UNABLE TO REPORT DUE TO URINE COLOR INTERFERENCE URINE LEUK ESTERASE (NEGATIVE) UNABLE TO REPORT DUE TO URINE COLOR INTERFERENCE URINE RBC 1-3 rbc/hpf (0-1) URINE WBC 5-10 wbc/hpf (0-1) URINE EPITHELIAL CELLS >15 EPI/hpf (0-5) URINE BACTERIA MANY (4+) (NONE SEEN) URINE COMMENT CULTURE INDICATED EPITHELIAL CONTAMINATION. NO CULTURE SETUPPlease call laboratory if culture wanted.URINE CULTURES ARE SET-UP BASED ON THE FOLLOWING CRITERIA:POSITIVE NITRITEPOSITIVE LEUKOCYTE ESTERASEGREATER THAN 10 WHITE BLOOD CELLSMODERATE (2+) OR GREATER BACTERIA CBC w Diff: (CONSTANTINO: 08/05/2016 11:55) ( MsgRcvd 08/05/2016 12:22) Final results Test Result Flag Units (Reference) WHITE BLOOD COUNT 9.7 K/uL (4.5-11.5) RED BLOOD COUNT 4.88 M/uL (4.00-5.20) HEMOGLOBIN 14.4 gm/dL (12.0-16.0) HEMATOCRIT 42.3 % (36.0-46.0) MEAN CELL VOLUME 87 fL (80-100) MEAN CORPUSCULAR HGB 30 pg (26-34) MEAN CORPUSCULAR HGB CONC 34 g/dL (31-37) RED CELL DISTRIBUTION WIDTH 12.8 % (11.6-14.8) PLATELET COUNT 243 K/uL (150-400) NEUTROPHIL % 55.5 % (50-75) LYMPH % 35.4 % (25-40) MONO % 5.6 % (3-14) EOSINOPHIL % 2.7 % (0-4) BASOPHIL % 0.8 % (0-2) CMP: (CONSTANTINO: 08/05/2016 11:55) ( MsgRcvd 08/05/2016 12:28) Final results Test Result Flag Units (Reference) GLUCOSE 91 mg/dL (70-110) BUN 10 mg/dL (7-18) CREATININE 0.8 mg/dL (0.6-1.3) Estimated GFR >60 mL/min Estimated GFR- >60 mL/min Note: Persistent reduction over 3 months in eGFR<60 mL/min/1.73 m2 defines CKD. Patients with eGFR values>=60 mL/min/1.73 m2 may also have CKD if evidence ofpersistent proteinuria. Additional information may be foundat www.kidney.org. SODIUM 138 mmol/L (136-145) POTASSIUM 4.0 mmol/L (3.5-5.1) CHLORIDE 103 mmol/L (98-107) CARBON DIOXIDE 24 mmol/L (21-32) CALCIUM 9.4 mg/dL (8.5-10.1) TOTAL PROTEIN 7.2 g/dL (6.4-8.2) ALBUMIN 3.7 g/dL (3.3-5.0) BILIRUBIN, TOTAL 0.5 mg/dL (0.0-1.0) ALKALINE PHOSPHATASE 65 U/L (46-116) AST (SGOT) 36 U/L (15-37) ALT (SGPT) 75 U/L (12-78) [id number]: (CONSTANTINO: 08/05/2016 12:30) ( [facility] [place]/07/[place] 06:08) Final results Specimen Comment: R LABIUM MAGUS SPECIMEN DESCRIPTION: SWAB Test Result Flag Units (Reference) CHLAMYDIA TRACHOMATIS JAY JAY Negative NEISSERIA GONORRHOEAE JAY JAY Negative Performed at: [address] [id number] Cyber Systems Engineer: Tito Bose MD, Phone: [phone] Culture, Urine: (CONSTANTINO: 08/05/2016 12:30) ( MogRcvd 08/07/2016 07:45) Final results Test Result Flag Units (Reference) CULTURE, URINE DATE: 08/07/16 PRELIM REPORT: FINAL REPORT -- ESCCOL QUANTITATIVE URINE GROWTH: GREATER THAN 100,000 CFU/mL AMOXICILLIN/CLAVULANATE AMPICILLIN R AMPICILLIN/SULBACTAM R CEFAZOLIN S CEFTRIAXONE S CEFEPIME S CEFUROXIME CIPROFLOXACIN S ERTAPENEM S GENTAMICIN S IMIPENEM S LEVOFLOXACIN S MEROPENEM S NITROFURANTOIN S TETRACYCLINE PIP/TAZO S TRIMETHOPRIM/SULFAMETHOXAZOLE R Wet Prep: (CONSTANTINO: 08/05/2016 12:30) ( MsgRcvd 08/05/2016 12:54) Final results Specimen Comment: R LABIUM MAGUS SPECIMEN DESCRIPTION: SWAB Test Result Flag Units (Reference) WET MOUNT CLUE CELLS:: NONE EPITHELIAL CELLS: MANY SOURCE?: RIGHT LABIA WHITE BLOOD CELLS: FEW TRICHOMONAS:: NONE -- YEAST:: NONE . PROGRESS AND PROCEDURES Course of Care: 12:56 08/05/16. Pelvic remarkable only for R labium 14:41 08/05/16. Cath UA not back Pt not gives the hx of frequent and prolonged bubble baths. The pt could well have urethritis either from an STD or a chemical urethritis. She will be treated for both. She does not appear to have an acute surgical abdomen or renal colic. Disposition: Discharged. Condition: stable. CLINICAL IMPRESSION Abdominal pain of unknown cause. Acute nonspecific urethritis INSTRUCTIONS Do not work today. ([facility] LAB TESTS NORMAL DON'T DO BUBBLE BATH). Prescription Medications: Doxycycline 100 mg: Take 1 capsule orally every 12 hours for 10 days. No refill. Understanding of the discharge instructions verbalized by patient. Follow-up with: [facility], , , [address], , [place], [address] Follow up. Call for an appointment. (Electronically signed by Jono Littlejohn MD 08/07/2016 12:06) Addenda for BG GARDUNO VisitID: [id number] Date: 08/05/2016 08/06/2016 16:12 Pt calling ED, states she lost her doxycycline RX from yesterday and is requesting it be replaced. Discussed with Francis Burgess MD, ok to replace antibx script and call in for pt. Doxycycline 100mg 1 tab PO BID X10 days. RX called into [facility] pt per patient's preference. (Electronically signed by Oneil Box R.N. - 08/06/2016 16:12)
--- NOTE | 2016-08-07 12:06 | ED MAR SUMMARY ---
..... Medication Administration Record [facility] [address] [place] [address] Patient: BG GARDUNO Visit ID: [id number] 21y, F Weight: 111.1 kg Height/Length: 68 in BMI: 37.3 ALLERGIES: Iodine Given 16:00 08/05/2016 Oneil Box R.N. Medication Administered: CEFTRIAXONE [IM], Dose: 250 mg IM. Medication Ordered: Ceftriaxone IM 250 mg (NOW). Given 16:00 08/05/2016 Oneil Box R.N. Medication Administered: DOXYCYCLINE MONOHYDRATE [PO], Dose: 100 mg Tablets PO. Medication Ordered: Doxycycline Monohydrate PO 100 mg (NOW).
--- NOTE | 2016-08-07 12:06 | ED DISCHARGE INSTRUCTIONS ---
Patient: BG GARDUNO General Instructions [facility] VisitID: [id number] [address] [place] [address] 21y, F Registration Date/Time: 08/05/2016 Abdominal pain of unknown cause. Acute nonspecific urethritis INSTRUCTIONS Do not work today. ([facility]ABL[facility] PRIMARY CARE LAB TESTS NORMAL DON'T DO BUBBLE BATH). Prescription Medications: Doxycycline 100 mg: Take 1 capsule orally every 12 hours for 10 days. No refill. Understanding of the discharge instructions verbalized by patient. Follow-up with: [facility], , , [address], , [place], [address] Follow up. Call for an appointment. ADDITIONAL INFORMATION Urethritis,Female, Adult, Infection Vs. Chemical In a woman, the urethra is the opening above the vagina that passes urine. Urethritis is an inflammation of the urethra. It causes pain and burning when passing urine. There may also be some discharge from the urethra. The cause for your urethritis is not certain. It is usually due to infection or chemical irritation. A chemical irritation causes temporary inflammation and pain with urination. Soaps, lotions, colognes, and feminine hygiene products, as well as contraceptive jellies, creams, or foams, can cause this. Symptoms improve within3 days after last exposure. A bladder infection is a common cause for pain and burning when passing urine, but it causes no discharge from the urethra. A sexually transmitted disease (STD) from gonorrhea or chlamydia can cause urethritis in women. If your doctor thinks you may have an STD, a culture may be taken. It will take about three days to get a culture result. Antibiotics may be started before the culture result returns. In postmenopausal women, dysuria can be a result of dryness in the lining of the urethra. This can be treated with hormones. Dysuria becomes chronic when it lasts for weeks or months. A referral to a specialist (urologist) may be needed to diagnose and treat chronic dysuria. Home Care: Avoid any chemical agents that you suspect may be causing your symptoms. If you were given a prescription medicine, take it as directed. If an STD culture was done, avoid sexual activity until you have been told that the culture is negative (no infection). Then follow your doctors advice to treat your condition. If an STD culture was done and it is positive: Both you and your sexual partner need to be treated, even if your partner has no symptoms. Contact your doctor or go to an urgent care clinic or the Public Health Department to be examined and treated. Avoid sexual activity until both you and your partner have completed all antibiotic medicine and are told that you are no longer contagious. Learn about safe sex practices and use these in the future. The safest sex is with a partner who has tested negative and only has sex with you. Condoms offer protection from spreading some sexually transmitted diseases including gonorrhea, chlamydia and HIV, but are not a guarantee. Follow Up with your doctor as advised by our staff. If an STD culture was taken, call in three days for the result, or as directed. If diagnosed with an STD, follow up with your doctor or the Public Health Department for complete STD screening, including HIV testing. For more information, contact the National STD Hotline: 862.820.4355. Get Prompt Medical Attention if any of the following occur: No improvement after 3 days Fever over 100.4F (38.0C) New or increasing lower abdominal pain or back pain Repeated vomiting Vaginal discharge or unexpected vaginal bleeding Weakness, dizziness, or fainting Inability to urinate due to pain Rash or joint pain Painful open sores on the outer vaginal area Enlarged painful lymph nodes (lumps) in the groin Increasing back or abdominal pain You have been given the following additional information: Urethritis, Female (Infec Vs Inflam), Adult Do not work today. (Electronically signed by Jono Littlejohn MD 08/07/2016 12:06)
--- NOTE | 2016-08-07 12:06 | ED DISCHARGE INSTRUCTIONS ---
Patient: BG GARDUNO General Instructions [facility] VisitID: [id number] [address] [place] [address] 21y, F Registration Date/Time: 08/05/2016 Abdominal pain of unknown cause. Acute nonspecific urethritis INSTRUCTIONS Do not work today. (ESTABLISH PRIMARY CARE LAB TESTS NORMAL DON'T DO BUBBLE BATH). Prescription Medications: Doxycycline 100 mg: Take 1 capsule orally every 12 hours for 10 days. No refill. Understanding of the discharge instructions verbalized by patient. Follow-up with: [facility], , , [address], , [place], [address] Follow up. Call for an appointment. ADDITIONAL INFORMATION Urethritis,Female, Adult, Infection Vs. Chemical In a woman, the urethra is the opening above the vagina that passes urine. Urethritis is an inflammation of the urethra. It causes pain and burning when passing urine. There may also be some discharge from the urethra. The cause for your urethritis is not certain. It is usually due to infection or chemical irritation. A chemical irritation causes temporary inflammation and pain with urination. Soaps, lotions, colognes, and feminine hygiene products, as well as contraceptive jellies, creams, or foams, can cause this. Symptoms improve within3 days after last exposure. A bladder infection is a common cause for pain and burning when passing urine, but it causes no discharge from the urethra. A sexually transmitted disease (STD) from gonorrhea or chlamydia can cause urethritis in women. If your doctor thinks you may have an STD, a culture may be taken. It will take about three days to get a culture result. Antibiotics may be started before the culture result returns. In postmenopausal women, dysuria can be a result of dryness in the lining of the urethra. This can be treated with hormones. Dysuria becomes chronic when it lasts for weeks or months. A referral to a specialist (urologist) may be needed to diagnose and treat chronic dysuria. Home Care: Avoid any chemical agents that you suspect may be causing your symptoms. If you were given a prescription medicine, take it as directed. If an STD culture was done, avoid sexual activity until you have been told that the culture is negative (no infection). Then follow your doctors advice to treat your condition. If an STD culture was done and it is positive: Both you and your sexual partner need to be treated, even if your partner has no symptoms. Contact your doctor or go to an urgent care clinic or the Public Health Department to be examined and treated. Avoid sexual activity until both you and your partner have completed all antibiotic medicine and are told that you are no longer contagious. Learn about safe sex practices and use these in the future. The safest sex is with a partner who has tested negative and only has sex with you. Condoms offer protection from spreading some sexually transmitted diseases including gonorrhea, chlamydia and HIV, but are not a guarantee. Follow Up with your doctor as advised by our staff. If an STD culture was taken, call in three days for the result, or as directed. If diagnosed with an STD, follow up with your doctor or the Public Health Department for complete STD screening, including HIV testing. For more information, contact the National STD Hotline: 291.417.1014. Get Prompt Medical Attention if any of the following occur: No improvement after 3 days Fever over 100.4F (38.0C) New or increasing lower abdominal pain or back pain Repeated vomiting Vaginal discharge or unexpected vaginal bleeding Weakness, dizziness, or fainting Inability to urinate due to pain Rash or joint pain Painful open sores on the outer vaginal area Enlarged painful lymph nodes (lumps) in the groin Increasing back or abdominal pain You have been given the following additional information: Urethritis, Female (Infec Vs Inflam), Adult Do not work today. (Electronically signed by Jono Littlejohn MD 08/07/2016 12:06)
--- NOTE | 2016-08-07 12:06 | ED MAR SUMMARY ---
..... Medication Administration Record [facility] [address] [place] [address] Patient: BG GARDUNO Visit ID: [id number] 21y, F Weight: 111.1 kg Height/Length: 68 in BMI: 37.3 ALLERGIES: Iodine Given 16:00 08/05/2016 Oneil Box R.N. Medication Administered: CEFTRIAXONE [IM], Dose: 250 mg IM. Medication Ordered: Ceftriaxone IM 250 mg (NOW). Given 16:00 08/05/2016 Oneil Box R.N. Medication Administered: DOXYCYCLINE MONOHYDRATE [PO], Dose: 100 mg Tablets PO. Medication Ordered: Doxycycline Monohydrate PO 100 mg (NOW).
--- NOTE | 2016-08-07 12:07 | ED MED RECONCILIATION SUMMARY ---
Patient: BG GARDUNO Medication Reconciliation Report [facility] VisitID: [id number] [address] [place] [address] 21y, F Registration Date/Time: 08/05/2016 Weight: 111.1 kg Height/Length: 68 in. BMI: 37.3 ALLERGIES: Iodine The patient's Home Medications are listed below: THE FOLLOWING MEDICATIONS NEED TO BE RECONCILED: "the that makes you pee orange" Antibiotic Hydrocodone The source(s) of the original Home Medication information: Not obtained. The following Medications were given to the patient in the Emergency Department: Ceftriaxone [IM] IM 250 mg, administered: 08/05/2016 4:00:00 PM DOXYCYCLINE MONOHYDRATE [PO] PO 100 mg, administered: 08/05/2016 4:00:00 PM The following Medications were prescribed to the patient: Doxycycline 100 mg: Take 1 capsule orally every 12 hours for 10 days. No refill. -- Jono Littlejohn MD
--- NOTE | 2016-08-07 12:07 | ED MED RECONCILIATION SUMMARY ---
Patient: BG GARDUNO Medication Reconciliation Report [facility] VisitID: [id number] [address] [place] [address] 21y, F Registration Date/Time: 08/05/2016 Weight: 111.1 kg Height/Length: 68 in. BMI: 37.3 ALLERGIES: Iodine The patient's Home Medications are listed below: THE FOLLOWING MEDICATIONS NEED TO BE RECONCILED: "the that makes you pee orange" Antibiotic Hydrocodone The source(s) of the original Home Medication information: Not obtained. The following Medications were given to the patient in the Emergency Department: Ceftriaxone [IM] IM 250 mg, administered: 08/05/2016 4:00:00 PM DOXYCYCLINE MONOHYDRATE [PO] PO 100 mg, administered: 08/05/2016 4:00:00 PM The following Medications were prescribed to the patient: Doxycycline 100 mg: Take 1 capsule orally every 12 hours for 10 days. No refill. -- Jono Littlejohn MD
== END 2016-08-05 16:07 | disposition home or self-care (01) ==
LOC: ED SRH 08:59
DX: N34.2 Other urethritis (principal); R10.9 Unspecified abdominal pain
CPT/HCPCS: 81460; 90004; 90100; 90148; 90195; 90469; 91227; 91228; 95059; 99105

== ENCOUNTER 2016-09-07 23:55 | Emergency (ER) | payer OTHER ==
--- NOTE | 2016-09-08 02:40 | ED CLINICAL REPORT ---
Clinical Report - Physicians/Mid Levels [facility] [address] [place] [address] 09/07/2016 23:57 Patient: BG GARDUNO Time Seen: 00:22. Arrived- By private vehicle. Historian- patient. HISTORY OF PRESENT ILLNESS Chief Complaint: LOW BACK PAIN. This started several days ago and still present. It was gradual in onset and has been waxing/waning. The symptoms are described as moderate. The patient has recently had irregular periods (she says that her period is 2 weeks late). The patient has had urinary frequency. REVIEW OF SYSTEMS The patient has had chills and back pain and experienced sweats. No calf pain, chest pain, cough, difficulty breathing or pedal edema. No palpitations, abdominal pain, constipation, diarrhea or nausea. No vomiting. All systems otherwise negative, except as recorded above. PAST HISTORY Problems: Urethritis. Abdominal Pain. Nephrolithiasis. Gastroenteritis. Flank Pain. Peptic Ulcer Disease. UTI - Urinary Tract Infection. Chlamydia. Polycystic Ovary Disease. Depression. Anxiety Reaction. Additional Surgeries: Tonsillectomy & Adenoidectomy. Medications: None. Allergies: Iodine. SOCIAL HISTORY Current every day heavy tobacco smoker (cigarette)- 1 pack per day. Occasional alcohol use. No drug use. FAMILY HISTORY No significant family medical history. ADDITIONAL NOTES The nursing notes have been reviewed. PHYSICAL EXAM Vital Signs: 09/08/2016 00:03 BP: 110/54. HR: 119. RR: 24. O2 saturation: 96%. Temp: 100.6 F. Pain level now: 610. Have been reviewed. Appearance: Alert. ENT: Pharynx normal. Neck: Neck supple. CVS: Heart sounds normal. Respiratory: No respiratory distress. Breath sounds normal. Abdomen: Soft and nontender. Bowel sounds normal. No organomegaly. No mass. Obese. Back: Mild CVA tenderness on the right. Skin: Skin warm and dry. Normal skin color. No rash. Normal skin turgor. Extremities: No lower extremity edema. LABS, X-RAYS, AND EKG Laboratory Tests: UA-Culture if indicated: (CONSTANTINO: 09/08/2016 00:05) ( [facility] [place] 09/08/2016 00:34) Final results Test Result Flag Units (Reference) URINE COLOR YELLOW URINE APPEARANCE CLOUDY URINE GLUCOSE NEGATIVE (NEGATIVE) URINE BILIRUBIN NEGATIVE (NEGATIVE) URINE KETONE NEGATIVE (NEGATIVE) URINE SPECIFIC GRAVITY 1.015 (1.010-1.030) URINE PH 6.0 (5.0-8.0) URINE PROTEIN TRACE (NEGATIVE) URINE UROBILINOGEN 0.2 EU/dL (0.2-1.0) URINE NITRITE POSITIVE (NEGATIVE) URINE BLOOD 1+ (NEGATIVE) URINE LEUK ESTERASE POSITIVE (NEGATIVE) URINE RBC 1-3 rbc/hpf (0-1) URINE WBC 5-10 wbc/hpf (0-1) URINE EPITHELIAL CELLS 1-3 EPI/hpf (0-5) URINE BACTERIA FEW (1+) (NONE SEEN) URINE COMMENT CULTURE INDICATED URINE CULTURES ARE SET-UP BASED ON THE FOLLOWING CRITERIA:POSITIVE NITRITEPOSITIVE LEUKOCYTE ESTERASEGREATER THAN 10 WHITE BLOOD CELLSMODERATE (2+) OR GREATER BACTERIA Urine: (CONSTANTINO: 09/08/2016 00:05) ( [facility] 09/08/2016 00:34) Final results Test Result Flag Units (Reference) URINE NEGATIVE CBC w Diff: (CONSTANTINO: 09/08/2016 00:15) ( [facility] [place] 09/08/2016 00:59) Final results Test Result Flag Units (Reference) WHITE BLOOD COUNT 13.9 H K/uL (4.5-11.5) RED BLOOD COUNT 4.72 M/uL (4.00-5.20) HEMOGLOBIN 13.8 gm/dL (12.0-16.0) HEMATOCRIT 40.9 % (36.0-46.0) MEAN CELL VOLUME 87 fL (80-100) MEAN CORPUSCULAR HGB 29 pg (26-34) MEAN CORPUSCULAR HGB CONC 34 g/dL (31-37) RED CELL DISTRIBUTION WIDTH 12.7 % (11.6-14.8) PLATELET COUNT 222 K/uL (150-400) NEUTROPHIL % 83.9 H % (50-75) LYMPH % 9.1 L % (25-40) MONO % 5.7 % (3-14) EOSINOPHIL % 1.1 % (0-4) BASOPHIL % 0.2 % (0-2) PT with INR: (CONSTANTINO: 09/08/2016 00:15) ( MsgRcvd 09/08/2016 00:59) Final results Test Result Flag Units (Reference) INR 0.9 (0.8-1.2) Low Intensity Therapy: INR 1.5-2.0 PT range 18.5-23.1Mod.Intensity Therapy: INR 2.0-3.0 PT range 23.1-31.5High Intensity Therapy: INR 2.5-3.5 PT range 27.4-35.5High Intensity Therapy 2: INR 3.0-4.0 PT range 31.5-39.3 CMP: (CONSTANTINO: 09/08/2016 00:15) ( OkgRcvd 09/08/2016 00:56) Final results Test Result Flag Units (Reference) GLUCOSE 113 H mg/dL (70-110) BUN 13 mg/dL (7-18) CREATININE 0.8 mg/dL (0.6-1.3) Estimated GFR >60 mL/min Estimated GFR- >60 mL/min Note: Persistent reduction over 3 months in eGFR<60 mL/min/1.73 m2 defines CKD. Patients with eGFR values>=60 mL/min/1.73 m2 may also have CKD if evidence ofpersistent proteinuria. Additional information may be foundat www.kidney.org. SODIUM 141 mmol/L (136-145) POTASSIUM 3.8 mmol/L (3.5-5.1) CHLORIDE 104 mmol/L (98-107) CARBON DIOXIDE 24 mmol/L (21-32) CALCIUM 9.1 mg/dL (8.5-10.1) TOTAL PROTEIN 7.7 g/dL (6.4-8.2) ALBUMIN 3.6 g/dL (3.3-5.0) BILIRUBIN, TOTAL 0.8 mg/dL (0.0-1.0) ALKALINE PHOSPHATASE 81 U/L (46-116) AST (SGOT) 53 H U/L (15-37) ALT (SGPT) 75 U/L (12-78) LIPASE 112 U/L (73-393) AMYLASE 39 U/L (25-115) Culture, Urine: (CONSTANTINO: 09/08/2016 00:05) ( MsgRcvd 09/10/2016 12:35) Final results Test Result Flag Units (Reference) CULTURE, URINE DATE: 09/10/16 PRELIM REPORT: FINAL REPORT -- ESCCOL QUANTITATIVE URINE GROWTH: 50,000 TO 100,000 CFU/mL -- ESCCOL QUANTITATIVE URINE GROWTH: 50,000 TO 100,000 CFU/mL AMOXICILLIN/CLAVULANATE AMPICILLIN R AMPICILLIN/SULBACTAM R CEFAZOLIN S CEFTRIAXONE S CEFEPIME S CEFUROXIME CIPROFLOXACIN S ERTAPENEM S GENTAMICIN S IMIPENEM S LEVOFLOXACIN S MEROPENEM S NITROFURANTOIN S TETRACYCLINE PIP/TAZO S TRIMETHOPRIM/SULFAMETHOXAZOLE R . PROGRESS AND PROCEDURES Patient/family counseled. Old medical records reviewed. Disposition: Discharged. Condition: stable. CLINICAL IMPRESSION Acute pyelonephritis INSTRUCTIONS No driving or operating machinery while taking medication. Drink plenty of fluids. Warnings: Further evaluation is necessary. GENERAL WARNINGS: Return or contact your physician immediately if your condition worsens or changes unexpectedly, if not improving as expected, or if other problems arise. Prescription Medications: Hydrocodone/APAP 5mg/325mg: take 1 to 2 orally every 6 hours as needed for pain. Dispense fifteen (15). No refills. Cipro 500 mg: take 1 tab orally every 12 hours for 10 days. No refills. Substitution is permissible. (18 pills to finish the course started in the ER) Follow-up: Follow up with a urologist- as recommended by your primary care physician. Understanding of the discharge instructions verbalized by patient. Follow-up with: [facility], , , [address], , [place], [address] Follow up tomorrow. Call for the next available appointment. (Electronically signed by Skip Horn MD 09/13/2016 8:03)
--- NOTE | 2016-09-08 02:40 | ED NURSING NOTES ---
Clinical Report - Nurses [facility] [address] [place] [address] 09/07/2016 23:57 Patient: BG GARDUNO TRIAGE Triage time 00:00. Acuity: LEVEL 3. Chief Complaint: FEVER and CHILLS (back pain). 00:09 09/08/16. Alert. No acute distress. JHON COMA SCORE: [place] Coma Scale: 15- eyes open spontaneously (4); best verbal response- oriented x 4 (5); best motor response- obeys commands (6). --00:09 Lyla Ross R.N. 00:03 09/08/16. BP: 110/54 (large adult cuff) taken on the left arm, while lying. HR: 119. RR: 24. O2 saturation: 96%. Temp: 100.6 F. Pain level now: 09/23. --00:09 Lyla Ross R.N. Weight: 99.7 kg stated. Height/Length: 68 inches Per Patient. BMI: 33.4. --00:08 Lyla Ross R.N. Medications None. --00:06 Lyla Ross R.N. Allergies Iodine. --00:06 Lyla Ross R.N. History Arrived by private vehicle. Historian: patient. Accompanied by friend. This started yesterday. ( Patient states she "feels like ". She reports she has had chills, sweats, and back pain today. She states she is worried because she is two weeks late for her period.). She has had constipation. Treatment MANAGER DATA: Took ibuprofen. PAST MEDICAL HX: Immunizations: up-to-date. Last normal menstrual period- two months ago. SOCIAL HX: Heavy tobacco smoker- less than 1 pack per day. Occasional alcohol use. No drug use. FALL RISK ASSESSMENT: Fall risk assessment completed. No fall risk identified. NUTRITIONAL RISK ASSESSMENT: The nutritional risk assessment revealed no deficiencies. FUNCTIONAL ASSESSMENT: Functional assessment: no impairments noted. LEARNING NEEDS ASSESSMENT: The learning needs assessment revealed no barriers. SKIN INTEGRITY ASSESSMENT: Skin integrity risk assessment completed. No skin integrity risk identified. --00:09 Lyla Ross R.N. PROBLEMS: Urethritis. Abdominal Pain. Nephrolithiasis. Gastroenteritis. Flank Pain. Peptic Ulcer Disease. UTI - Urinary Tract Infection. Chlamydia. LNMP - Last Normal Menstrual Period. Polycystic Ovary Disease. Depression. Anxiety Reaction. --00:06 Lyla Ross R.N. ADDITIONAL SURGERIES: Tonsillectomy & Adenoidectomy. --00:06 Lyla Ross R.N. Interventions ID band on patient. To treatment room. --00:09 Lyla Ross R.N. PHYSICAL ASSESSMENT 00:11 09/08/16. Ambulatory to room. GENERAL / NEURO / PSYCH: Alert. Oriented X 4. Appears in no acute distress. HEENT: Mucous membranes are pink. RESPIRATORY: Mild respiratory distress (tachypneic). Breath sounds within normal limits. CVS: Capillary refill less than 2 seconds. GI / : Abdomen soft and nontender. Bowel sounds within normal limits. SKIN: Skin is warm and dry. BACK: ROM of the back is normal, and painless. ( Patient reports constant low back pain bilaterally.). --00:13 Lyla Ross R.N. NURSING PROGRESS NOTES 00:13 09/08/2016 Site #1 started via IV in the right hand with an 20g angiocath; one attempt. Blood drawn: rainbow set. Labeled in the presence of the patient and sent to the lab. Saline lock flushed with 5 mL saline. --00:13 Lyla Ross R.N. Patient ID band checked for patient name and birthdate: patient confirmed. Blood samples drawn from the right hand with needle by nurse per protocol ; labeled in presence of the patient: rainbow set. Line flushed with 5 mL normal saline post blood draw (blood drawn and IV placed by ARJUN Perez). --00:14 Lyla Ross R.N. Patient ID band checked for patient name and birthdate: patient confirmed. Instructions provided to collect clean catch urine and patient verbalized understanding. Clean catch urine collected with return of yellow-colored clear urine; sample sent to lab for urinalysis. Specimen labeled in the presence of the patient. --00:14 Lyla Ross R.N. 00:16 09/08/2016 Started bag #1 1000 mL IV Fluids IV NS (Saline); bolus of 1000 mL wide open via site #1. Allergies verified and confirmed 5 rights. IV patency established. IV site checked: no pain, redness, or swelling. IV flushed thoroughly pre- and post-medication administration. Completed per protocol. --00:16 Lyla Ross R.N. 01:06 09/08/16. BP: 95/44 (regular adult cuff) taken on the right arm, while lying. HR: 101. RR: 17. O2 saturation: 98% on room air. Pain level now: 09/23. --01:07 Lyla Ross R.N. 01:28 09/08/2016 IV Fluids IV NS Discontinued: bag #1 completed. Total amount infused: 1000 mL. IV patency established. IV site checked: no pain, redness, or swelling. IV flushed thoroughly. --01:28 Ana Miles 01:07 09/08/16. BP: 101/50 (regular adult cuff) taken on the right arm, while lying. --01:29 Lyla Ross R.N. 02:42 09/08/2016 Levofloxacin PO Tablets 750 mg given. Allergies verified and confirmed 5 rights. --02:42 Lyla Ross R.N. 02:42 09/08/2016 Site #1 removed upon discharge. Manual pressure and bandaid applied. --02:52 Lyla Ross R.N. DISPOSITION / DISCHARGE 02:47 09/08/16. No learning barriers present. Discharge instructions provided and reviewed with the patient. Reviewed warnings. Reviewed medication(s). Treatments reviewed. Activity restrictions reviewed. Patient verbalized understanding. Written instructions provided in Ivorian. The patient was discharged home and accompanied by manager sound. She left the Emergency Department ambulatory and via private vehicle. Patient driving. --02:47 Lyla Ross R.N. 02:43 09/08/16. BP: 110/55. HR: 93. RR: 16. O2 saturation: 95%. Temp: 98.4 F. Pain level now: 07/24. --02:47 Lyla Ross R.N. 02:48 09/08/16. Departure time: 02:48. --02:48 Lyla Ross R.N. Locked/Released at 09/08/2016 2:53 by Lyla Ross R.N.
--- NOTE | 2016-09-08 02:40 | ED CLINICAL REPORT ---
Clinical Report - Physicians/Mid Levels [facility] [address] [place] [address] 09/07/2016 23:57 Patient: BG GARDUNO Time Seen: 00:22. Arrived- By private vehicle. Historian- patient. HISTORY OF PRESENT ILLNESS Chief Complaint: LOW BACK PAIN. This started several days ago and still present. It was gradual in onset and has been waxing/waning. The symptoms are described as moderate. The patient has recently had irregular periods (she says that her period is 2 weeks late). The patient has had urinary frequency. REVIEW OF SYSTEMS The patient has had chills and back pain and experienced sweats. No calf pain, chest pain, cough, difficulty breathing or pedal edema. No palpitations, abdominal pain, constipation, diarrhea or nausea. No vomiting. All systems otherwise negative, except as recorded above. PAST HISTORY Problems: Urethritis. Abdominal Pain. Nephrolithiasis. Gastroenteritis. Flank Pain. Peptic Ulcer Disease. UTI - Urinary Tract Infection. Chlamydia. Polycystic Ovary Disease. Depression. Anxiety Reaction. Additional Surgeries: Tonsillectomy & Adenoidectomy. Medications: None. Allergies: Iodine. SOCIAL HISTORY Current every day heavy tobacco smoker (cigarette)- 1 pack per day. Occasional alcohol use. No drug use. FAMILY HISTORY No significant family medical history. ADDITIONAL NOTES The nursing notes have been reviewed. PHYSICAL EXAM Vital Signs: 09/08/2016 00:03 BP: 110/54. HR: 119. RR: 24. O2 saturation: 96%. Temp: 100.6 F. Pain level now: 610. Have been reviewed. Appearance: Alert. ENT: Pharynx normal. Neck: Neck supple. CVS: Heart sounds normal. Respiratory: No respiratory distress. Breath sounds normal. Abdomen: Soft and nontender. Bowel sounds normal. No organomegaly. No mass. Obese. Back: Mild CVA tenderness on the right. Skin: Skin warm and dry. Normal skin color. No rash. Normal skin turgor. Extremities: No lower extremity edema. LABS, X-RAYS, AND EKG Laboratory Tests: UA-Culture if indicated: (CONSTANTINO: 09/08/2016 00:05) ( [facility] [place] 09/08/2016 00:34) Final results Test Result Flag Units (Reference) URINE COLOR YELLOW URINE APPEARANCE CLOUDY URINE GLUCOSE NEGATIVE (NEGATIVE) URINE BILIRUBIN NEGATIVE (NEGATIVE) URINE KETONE NEGATIVE (NEGATIVE) URINE SPECIFIC GRAVITY 1.015 (1.010-1.030) URINE PH 6.0 (5.0-8.0) URINE PROTEIN TRACE (NEGATIVE) URINE UROBILINOGEN 0.2 EU/dL (0.2-1.0) URINE NITRITE POSITIVE (NEGATIVE) URINE BLOOD 1+ (NEGATIVE) URINE LEUK ESTERASE POSITIVE (NEGATIVE) URINE RBC 1-3 rbc/hpf (0-1) URINE WBC 5-10 wbc/hpf (0-1) URINE EPITHELIAL CELLS 1-3 EPI/hpf (0-5) URINE BACTERIA FEW (1+) (NONE SEEN) URINE COMMENT CULTURE INDICATED URINE CULTURES ARE SET-UP BASED ON THE FOLLOWING CRITERIA:POSITIVE NITRITEPOSITIVE LEUKOCYTE ESTERASEGREATER THAN 10 WHITE BLOOD CELLSMODERATE (2+) OR GREATER BACTERIA Urine: (CONSTANTINO: 09/08/2016 00:05) ( [facility] 09/08/2016 00:34) Final results Test Result Flag Units (Reference) URINE NEGATIVE CBC w Diff: (CONSTANTINO: 09/08/2016 00:15) ( [facility] [place] 09/08/2016 00:59) Final results Test Result Flag Units (Reference) WHITE BLOOD COUNT 13.9 H K/uL (4.5-11.5) RED BLOOD COUNT 4.72 M/uL (4.00-5.20) HEMOGLOBIN 13.8 gm/dL (12.0-16.0) HEMATOCRIT 40.9 % (36.0-46.0) MEAN CELL VOLUME 87 fL (80-100) MEAN CORPUSCULAR HGB 29 pg (26-34) MEAN CORPUSCULAR HGB CONC 34 g/dL (31-37) RED CELL DISTRIBUTION WIDTH 12.7 % (11.6-14.8) PLATELET COUNT 222 K/uL (150-400) NEUTROPHIL % 83.9 H % (50-75) LYMPH % 9.1 L % (25-40) MONO % 5.7 % (3-14) EOSINOPHIL % 1.1 % (0-4) BASOPHIL % 0.2 % (0-2) PT with INR: (CONSTANTINO: 09/08/2016 00:15) ( MsgRcvd 09/08/2016 00:59) Final results Test Result Flag Units (Reference) INR 0.9 (0.8-1.2) Low Intensity Therapy: INR 1.5-2.0 PT range 18.5-23.1Mod.Intensity Therapy: INR 2.0-3.0 PT range 23.1-31.5High Intensity Therapy: INR 2.5-3.5 PT range 27.4-35.5High Intensity Therapy 2: INR 3.0-4.0 PT range 31.5-39.3 CMP: (CONSTANTINO: 09/08/2016 00:15) ( UtgRcvd 09/08/2016 00:56) Final results Test Result Flag Units (Reference) GLUCOSE 113 H mg/dL (70-110) BUN 13 mg/dL (7-18) CREATININE 0.8 mg/dL (0.6-1.3) Estimated GFR >60 mL/min Estimated GFR- >60 mL/min Note: Persistent reduction over 3 months in eGFR<60 mL/min/1.73 m2 defines CKD. Patients with eGFR values>=60 mL/min/1.73 m2 may also have CKD if evidence ofpersistent proteinuria. Additional information may be foundat www.kidney.org. SODIUM 141 mmol/L (136-145) POTASSIUM 3.8 mmol/L (3.5-5.1) CHLORIDE 104 mmol/L (98-107) CARBON DIOXIDE 24 mmol/L (21-32) CALCIUM 9.1 mg/dL (8.5-10.1) TOTAL PROTEIN 7.7 g/dL (6.4-8.2) ALBUMIN 3.6 g/dL (3.3-5.0) BILIRUBIN, TOTAL 0.8 mg/dL (0.0-1.0) ALKALINE PHOSPHATASE 81 U/L (46-116) AST (SGOT) 53 H U/L (15-37) ALT (SGPT) 75 U/L (12-78) LIPASE 112 U/L (73-393) AMYLASE 39 U/L (25-115) Culture, Urine: (CONSTANTINO: 09/08/2016 00:05) ( MsgRcvd 09/10/2016 12:35) Final results Test Result Flag Units (Reference) CULTURE, URINE DATE: 09/10/16 PRELIM REPORT: FINAL REPORT -- ESCCOL QUANTITATIVE URINE GROWTH: 50,000 TO 100,000 CFU/mL -- ESCCOL QUANTITATIVE URINE GROWTH: 50,000 TO 100,000 CFU/mL AMOXICILLIN/CLAVULANATE AMPICILLIN R AMPICILLIN/SULBACTAM R CEFAZOLIN S CEFTRIAXONE S CEFEPIME S CEFUROXIME CIPROFLOXACIN S ERTAPENEM S GENTAMICIN S IMIPENEM S LEVOFLOXACIN S MEROPENEM S NITROFURANTOIN S TETRACYCLINE PIP/TAZO S TRIMETHOPRIM/SULFAMETHOXAZOLE R . PROGRESS AND PROCEDURES Patient/family counseled. Old medical records reviewed. Disposition: Discharged. Condition: stable. CLINICAL IMPRESSION Acute pyelonephritis INSTRUCTIONS No driving or operating machinery while taking medication. Drink plenty of fluids. Warnings: Further evaluation is necessary. GENERAL WARNINGS: Return or contact your physician immediately if your condition worsens or changes unexpectedly, if not improving as expected, or if other problems arise. Prescription Medications: Hydrocodone/APAP 5mg/325mg: take 1 to 2 orally every 6 hours as needed for pain. Dispense fifteen (15). No refills. Cipro 500 mg: take 1 tab orally every 12 hours for 10 days. No refills. Substitution is permissible. (18 pills to finish the course started in the ER) Follow-up: Follow up with a urologist- as recommended by your primary care physician. Understanding of the discharge instructions verbalized by patient. Follow-up with: [facility], , , [address], , [place], [phone] Follow up tomorrow. Call for the next available appointment. (Electronically signed by Skip Horn MD 09/13/2016 8:03)
--- NOTE | 2016-09-08 02:40 | ED NURSING NOTES ---
Clinical Report - Nurses Located Within [facility] [address] [place] [address] 09/07/2016 23:57 Patient: BG GARDUNO TRIAGE Triage time 00:00. Acuity: LEVEL 3. Chief Complaint: FEVER and CHILLS (back pain). 00:09 09/08/16. Alert. No acute distress. JHON COMA SCORE: [place] Coma Scale: 15- eyes open spontaneously (4); best verbal response- oriented x 4 (5); best motor response- obeys commands (6). --00:09 Lyla Ross R.N. 00:03 09/08/16. BP: 110/54 (large adult cuff) taken on the left arm, while lying. HR: 119. RR: 24. O2 saturation: 96%. Temp: 100.6 F. Pain level now: 09/23. --00:09 Lyla Ross R.N. Weight: 99.7 kg stated. Height/Length: 68 inches Per Patient. BMI: 33.4. --00:08 Lyla Ross R.N. Medications None. --00:06 Lyla Ross R.N. Allergies Iodine. --00:06 Lyla Ross R.N. History Arrived by private vehicle. Historian: patient. Accompanied by friend. This started yesterday. ( Patient states she "feels like ". She reports she has had chills, sweats, and back pain today. She states she is worried because she is two weeks late for her period.). She has had constipation. 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 PAST MEDICAL HX: Immunizations: up-to-date. Last normal menstrual period- two months ago. SOCIAL HX: Heavy tobacco smoker- less than 1 pack per day. Occasional alcohol use. No drug use. FALL RISK ASSESSMENT: Fall risk assessment completed. No fall risk identified. NUTRITIONAL RISK ASSESSMENT: The nutritional risk assessment revealed no deficiencies. FUNCTIONAL ASSESSMENT: Functional assessment: no impairments noted. LEARNING NEEDS ASSESSMENT: The learning needs assessment revealed no barriers. SKIN INTEGRITY ASSESSMENT: Skin integrity risk assessment completed. No skin integrity risk identified. --00:09 Lyla Ross R.N. PROBLEMS: Urethritis. Abdominal Pain. Nephrolithiasis. Gastroenteritis. Flank Pain. Peptic Ulcer Disease. UTI - Urinary Tract Infection. Chlamydia. LNMP - Last Normal Menstrual Period. Polycystic Ovary Disease. Depression. Anxiety Reaction. --00:06 Lyla Ross R.N. ADDITIONAL SURGERIES: Tonsillectomy & Adenoidectomy. --00:06 Lyla Ross R.N. Interventions ID band on patient. To treatment room. --00:09 Lyla Ross R.N. PHYSICAL ASSESSMENT 00:11 09/08/16. Ambulatory to room. GENERAL / NEURO / PSYCH: Alert. Oriented X 4. Appears in no acute distress. HEENT: Mucous membranes are pink. RESPIRATORY: Mild respiratory distress (tachypneic). Breath sounds within normal limits. CVS: Capillary refill less than 2 seconds. GI / : Abdomen soft and nontender. Bowel sounds within normal limits. SKIN: Skin is warm and dry. BACK: ROM of the back is normal, and painless. ( Patient reports constant low back pain bilaterally.). --00:13 Lyla Ross R.N. NURSING PROGRESS NOTES 00:13 09/08/2016 Site #1 started via IV in the right hand with an 20g angiocath; one attempt. Blood drawn: rainbow set. Labeled in the presence of the patient and sent to the lab. Saline lock flushed with 5 mL saline. --00:13 Lyla Ross R.N. Patient ID band checked for patient name and birthdate: patient confirmed. Blood samples drawn from the right hand with needle by nurse per protocol ; labeled in presence of the patient: rainbow set. Line flushed with 5 mL normal saline post blood draw (blood drawn and IV placed by ARJUN Perez). --00:14 Lyla Ross R.N. Patient ID band checked for patient name and birthdate: patient confirmed. Instructions provided to collect clean catch urine and patient verbalized understanding. Clean catch urine collected with return of yellow-colored clear urine; sample sent to lab for urinalysis. Specimen labeled in the presence of the patient. --00:14 Lyla Ross R.N. 00:16 09/08/2016 Started bag #1 1000 mL IV Fluids IV NS (Saline); bolus of 1000 mL wide open via site #1. Allergies verified and confirmed 5 rights. IV patency established. IV site checked: no pain, redness, or swelling. IV flushed thoroughly pre- and post-medication administration. Completed per protocol. --00:16 Lyla Ross R.N. 01:06 09/08/16. BP: 95/44 (regular adult cuff) taken on the right arm, while lying. HR: 101. RR: 17. O2 saturation: 98% on room air. Pain level now: 09/23. --01:07 Lyla Ross R.N. 01:28 09/08/2016 IV Fluids IV NS Discontinued: bag #1 completed. Total amount infused: 1000 mL. IV patency established. IV site checked: no pain, redness, or swelling. IV flushed thoroughly. --01:28 Ana Miles 01:07 09/08/16. BP: 101/50 (regular adult cuff) taken on the right arm, while lying. --01:29 Lyla Ross R.N. 02:42 09/08/2016 Levofloxacin PO Tablets 750 mg given. Allergies verified and confirmed 5 rights. --02:42 Lyla Ross R.N. 02:42 09/08/2016 Site #1 removed upon discharge. Manual pressure and bandaid applied. --02:52 Lyla Ross R.N. DISPOSITION / DISCHARGE 02:47 09/08/16. No learning barriers present. Discharge instructions provided and reviewed with the patient. Reviewed warnings. Reviewed medication(s). Treatments reviewed. Activity restrictions reviewed. Patient verbalized understanding. Written instructions provided in Nigerien. The patient was discharged home and accompanied by pediatrics hospitalist. She left the Emergency Department ambulatory and via private vehicle. Patient driving. --02:47 Lyla Ross R.N. 02:43 09/08/16. BP: 110/55. HR: 93. RR: 16. O2 saturation: 95%. Temp: 98.4 F. Pain level now: 07/24. --02:47 Lyla Ross R.N. 02:48 09/08/16. Departure time: 02:48. --02:48 Lyla Ross R.N. Locked/Released at 09/08/2016 2:53 by Lyla Ross R.N.
--- NOTE | 2016-09-08 02:40 | ED ORDER SUMMARY ---
..... Patient: BG GARDUNO OrderSheet [facility] VisitID: [id number] [place] [address] 21y, F Registration Date/Time: 09/07/2016 ORDER SHEET Weight: 99.7 kg (stated) Allergies: Iodine GENERAL ORDERS: CMP Urgent (00:15 09/08/2016 RMarsden R.N. per protocol) (0:16 RMarsden R.N.) CBC w Diff Urgent (00:09/08/2016 RMarsden R.N. per protocol) (0:16 RMarsden R.N.) BMP Urgent (00:09/08/2016 RMarsden R.N. per protocol) (0:16 RMarsden R.N.) (Cancelled: Other2:24 Stefan BARTHOLOMEW) UA-Culture if indicated Urgent (00:15 09/08/2016 RMarsden R.N. per protocol) (0:16 RMarsden R.N.) Urine Urgent (00:09/08/2016 RMarsden R.N. per protocol) (0:16 RMarsden R.N.) PT with INR Urgent (00:09/08/2016 RMarsden R.N. per protocol) (0:16 RMarsden R.N.) Amylase Urgent (00:09/08/2016 RMarsden R.N. per protocol) (0:16 RMarsden R.N.) Lipase Urgent (00:09/08/2016 RMarsden R.N. per protocol) (0:16 RMarsden R.N.) Pulse oximeter (00:09/08/2016 RMarsden R.N. per protocol) (0:16 RMarsden R.N.) MEDICATION ORDERS: Levofloxacin PO 750 mg (NOW) (02:35 09/08/2016 Stefan BARTHOLOMEW) (Ack 2:39 RMarsden R.N.) (2:42 RMarsden R.N.) IV FLUIDS: IV NS with Normal Saline 1 Liter: initial bolus 1000 mL (1000 mL/hr), then 1000 mL/hr for X1 (NOW) (00:15 09/08/2016 RMarsden R.N. per protocol) (0:16 RMarsden R.N.) IV Saline Lock (00:15 09/08/2016 RMkhushi R.N. per protocol) (0:16 RMarsden R.N.) ORDER SHEET NOTES: [Electronically signed by Lyla Ross R.N. (02:53 09/08/2016)] [Electronically signed by Skip Horn MD (08:03 09/13/2016)] [Electronically locked/signed by Lyla Ross R.N. (02:53 09/08/2016)]
--- NOTE | 2016-09-08 02:40 | ED ORDER SUMMARY ---
..... Patient: BG GARDUNO OrderSheet [facility] VisitID: [id number] [place] [address] 21y, F Registration Date/Time: 09/07/2016 ORDER SHEET Weight: 99.7 kg (stated) Allergies: Iodine GENERAL ORDERS: CMP Urgent (00:15 09/08/2016 RMarsden R.N. per protocol) (0:16 RMarsden R.N.) CBC w Diff Urgent (00:09/08/2016 RMarsden R.N. per protocol) (0:16 RMarsden R.N.) BMP Urgent (00:09/08/2016 RMarsden R.N. per protocol) (0:16 RMarsden R.N.) (Cancelled: Other2:24 Stefan BARTHOLOMEW) UA-Culture if indicated Urgent (00:15 09/08/2016 RMarsden R.N. per protocol) (0:16 RMarsden R.N.) Urine Urgent (00:09/08/2016 RMarsden R.N. per protocol) (0:16 RMarsden R.N.) PT with INR Urgent (00:09/08/2016 RMarsden R.N. per protocol) (0:16 RMarsden R.N.) Amylase Urgent (00:09/08/2016 RMarsden R.N. per protocol) (0:16 RMarsden R.N.) Lipase Urgent (00:09/08/2016 RMarsden R.N. per protocol) (0:16 RMarsden R.N.) Pulse oximeter (00:09/08/2016 RMarsden R.N. per protocol) (0:16 RMarsden R.N.) MEDICATION ORDERS: Levofloxacin PO 750 mg (NOW) (02:35 09/08/2016 Stefan BARTHOLOMEW) (Ack 2:39 RMarsden R.N.) (2:42 RMarsden R.N.) IV FLUIDS: IV NS with Normal Saline 1 Liter: initial bolus 1000 mL (1000 mL/hr), then 1000 mL/hr for X1 (NOW) (00:15 09/08/2016 RMarsden R.N. per protocol) (0:16 RMarsden R.N.) IV Saline Lock (00:15 09/08/2016 RMkhushi R.N. per protocol) (0:16 RMarsden R.N.) ORDER SHEET NOTES: [Electronically signed by Lyla Ross R.N. (02:53 09/08/2016)] [Electronically signed by Skip Horn MD (08:03 09/13/2016)] [Electronically locked/signed by Lyla Ross R.N. (02:53 09/08/2016)]
--- NOTE | 2016-09-13 08:03 | ED MAR SUMMARY ---
..... Medication Administration Record [facility] [address] [place] [address] Patient: BG GARDUNO Visit ID: [id number] 21y, F Weight: 99.7 kg Height/Length: 68 in BMI: 33.4 ALLERGIES: Iodine Start 00:16 09/08/2016 Lyla Ross R.N., Stop 01:28 09/08/2016 Ana Miles, Medication Administered: IV NS (SALINE), Dose: IV Fluids, Bolus: 1000 mL wide open, Dispensed: 1000 mL bag, Site: #1 right hand. Medication Ordered: IV NS with Normal Saline 1 Liter: initial bolus 1000 mL (1000 mL/hr), then 1000 mL/hr for X1 (NOW). Given 02:42 09/08/2016 Lyla Ross R.N. Medication Administered: LEVOFLOXACIN [PO], Dose: 750 mg Tablets PO. Medication Ordered: Levofloxacin PO 750 mg (NOW).
--- NOTE | 2016-09-13 08:03 | ED DISCHARGE INSTRUCTIONS ---
Patient: BG GARDUNO General Instructions [facility] VisitID: [id number] [address] [place] [address] 21y, F Registration Date/Time: 09/07/2016 Acute pyelonephritis INSTRUCTIONS No driving or operating machinery while taking medication. Drink plenty of fluids. Warnings: Further evaluation is necessary. GENERAL WARNINGS: Return or contact your physician immediately if your condition worsens or changes unexpectedly, if not improving as expected, or if other problems arise. Prescription Medications: Hydrocodone/APAP 5mg/325mg: take 1 to 2 orally every 6 hours as needed for pain. Dispense fifteen (15). No refills. Cipro 500 mg: take 1 tab orally every 12 hours for 10 days. No refills. Substitution is permissible. (18 pills to finish the course started in the ER) Follow-up: Follow up with a urologist- as recommended by your primary care physician. Understanding of the discharge instructions verbalized by patient. Follow-up with: [facility], , , [address], , [place], [address] Follow up tomorrow. Call for the next available appointment. ADDITIONAL INFORMATION Kidney Infection [Adult, Female] An infection of the kidney is also called "pyelonephritis". It usually starts as a bladder infection ("cystitis") which spreads to the kidneys. Pyelonephritis is more serious than a bladder infection. It can cause severe illness if not treated properly. The usual symptoms include an aching pain in the back, side or lower abdomen. Other symptoms may include fever, chills, nausea, vomiting, an urge to urinate and a burning sensation when passing urine. Home Care: Stay home from work or school. Rest in bed until your fever breaks and you are feeling better. Drink lots of fluid (at least 6-8 glasses a day, unless you must restrict fluids for other medical reasons). This will force the medicine into your urinary system and flush the bacteria out of your body. Avoid sexual intercourse until you have finished all of your medicine and your symptoms have gone away. Avoid caffeine, alcohol and spicy foods which may irritate the kidney and bladder. You may use acetaminophen (Tylenol) or ibuprofen (Motrin, Advil) to control pain, unless another pain medicine was prescribed. [NOTE: If you have chronic liver or kidney disease or ever had a stomach ulcer or GI bleeding, talk with your doctor before using these medicines.] Follow Up with your doctor or as advised by our staff for a repeat urine test in 10 days. This will ensure that your infection is fully cleared. [NOTE: If you had an X-ray or CT scan, it will be reviewed by a specialist. You will be notified of any new findings that may affect your care.] Get Prompt Medical Attention if any of the following occur: Fever over 100.4F (38.0C) after 48 hours of treatment No improvement by the third day of treatment Increasing back or abdominal pain Repeated vomiting or inability to take oral medicine Weakness, dizziness or fainting Hydrocodone Bitartrate, Acetaminophen Oral tablet What is this medicine? ACETAMINOPHEN; HYDROCODONE (a set a JUVENCIO nuno fen; chelsea droe KOE done) is a pain reliever. It is used to treat mild to moderate pain. How should I use this medicine? Take this medicine by mouth. Swallow it with a full glass of water. Follow the directions on the prescription label. If the medicine upsets your stomach, take the medicine with food or milk. Do not take more than you are told to take. Talk to your assembler musical instruments regarding the use of this medicine in children. This medicine is not approved for use in children. What side effects may I notice from receiving this medicine? Side effects that you should report to your doctor or health rn medicare as soon as possible: allergic reactions like skin rash, itching or hives, swelling of the face, lips, or tongue breathing problems confusion feeling faint or lightheaded, falls stomach pain yellowing of the eyes or skin Side effects that usually do not require medical attention (report to your doctor or health rn medicare if they continue or are bothersome): nausea, vomiting stomach upset What may interact with this medicine? alcohol antihistamines isoniazid medicines for depression, anxiety, or psychotic disturbances medicines for sleep muscle relaxants naltrexone narcotic medicines (opiates) for pain phenobarbital ritonavir tramadol What if I miss a dose? If you miss a dose, take it as soon as you can. If it is almost time for your next dose, take only that dose. Do not take double or extra doses. Where should I keep my medicine? Keep out of the reach of children. This medicine can be abused. Keep your medicine in a safe place to protect it from theft. Do not share this medicine with anyone. Selling or giving away this medicine is dangerous and against the law. Store at room temperature between 15 and 30 degrees C (59 and 86 degrees F). Protect from light. Keep container tightly closed. Throw away any unused medicine after the expiration date. Discard unused medicine and used packaging carefully. Pets and children can be harmed if they find used or lost packages. What should I tell my health care provider before I take this medicine? They need to know if you have any of these conditions: brain tumor Crohn's disease, inflammatory bowel disease, or ulcerative colitis drink more than 3 alcohol-containing drinks per day drug abuse or addiction head injury heart or circulation problems kidney disease or problems going to the bathroom liver disease lung disease, asthma, or breathing problems an unusual or allergic reaction to acetaminophen, hydrocodone, other opioid analgesics, other medicines, foods, dyes, or preservatives or trying to get breast-feeding What should I watch for while using this medicine? Tell your doctor or health rn medicare if your pain does not go away, if it gets worse, or if you have new or a different type of pain. You may develop tolerance to the medicine. Tolerance means that you will need a higher dose of the medicine for pain relief. Tolerance is normal and is expected if you take the medicine for a long time. Do not suddenly stop taking your medicine because you may develop a severe reaction. Your body becomes used to the medicine. This does NOT mean you are addicted. Addiction is a behavior related to getting and using a drug for a non-medical reason. If you have pain, you have a medical reason to take pain medicine. Your doctor will tell you how much medicine to take. If your doctor wants you to stop the medicine, the dose will be slowly lowered over time to avoid any side effects. You may get drowsy or dizzy when you first start taking the medicine or change doses. Do not drive, use machinery, or do anything that may be dangerous until you know how the medicine affects you. Stand or sit up slowly. There are different types of narcotic medicines (opiates) for pain. If you take more than one type at the same time, you may have more side effects. Give your health care provider a list of all medicines you use. Your doctor will tell you how much medicine to take. Do not take more medicine than directed. Call emergency for help if you have problems breathing. The medicine will cause constipation. Try to have a bowel movement at least every 2 to 3 days. If you do not have a bowel movement for 3 days, call your doctor or health rn medicare. Too much acetaminophen can be very dangerous. Do not take Tylenol (acetaminophen) or medicines that contain acetaminophen with this medicine. Many non-prescription medicines contain acetaminophen. Always read the labels carefully. Ciprofloxacin Hydrochloride Oral tablet What is this medicine? CIPROFLOXACIN (sip vani FLOX a sin) is a quinolone antibiotic. It is used to treat certain kinds of bacterial infections. It will not work for colds, flu, or other viral infections. How should I use this medicine? Take this medicine by mouth with a glass of water. Follow the directions on the prescription label. Take your medicine at regular intervals. Do not take your medicine more often than directed. Take all of your medicine as directed even if you think your are better. Do not skip doses or stop your medicine early. You can take this medicine with food or on an empty stomach. It can be taken with a meal that contains dairy or calcium, but do not take it alone with a dairy product, like milk or yogurt or calcium-fortified juice. A special MedGuide will be given to you by the pharmacist with each prescription and refill. Be sure to read this information carefully each time. Talk to your assembler musical instruments regarding the use of this medicine in children. Special care may be needed. What side effects may I notice from receiving this medicine? Side effects that you should report to your doctor or health rn medicare as soon as possible: - allergic reactions like skin rash, itching or hives, swelling of the face, lips, or tongue - breathing problems - confusion, nightmares or hallucinations - feeling faint or lightheaded, falls - irregular heartbeat - joint, muscle or tendon pain or swelling - pain or trouble passing urine -persistent headache with or without blurred vision - redness, blistering, peeling or loosening of the skin, including inside the mouth - seizure - unusual pain, numbness, tingling, or weakness Side effects that usually do not require medical attention (report to your doctor or health rn medicare if they continue or are bothersome): - diarrhea - nausea or stomach upset - white patches or sores in the mouth What may interact with this medicine? Do not take this medicine with any of the following medications: cisapride droperidol terfenadine tizanidine This medicine may also interact with the following medications: antacids caffeine cyclosporin didanosine (ddI) buffered tablets or powder medicines for diabetes medicines for inflammation like ibuprofen, naproxen methotrexate multivitamins omeprazole phenytoin probenecid sucralfate theophylline warfarin What if I miss a dose? If you miss a dose, take it as soon as you can. If it is almost time for your next dose, take only that dose. Do not take double or extra doses. Where should I keep my medicine? Keep out of the reach of children. Store at room temperature below 30 degrees C (86 degrees F). Keep container tightly closed. Throw away any unused medicine after the expiration date. What should I tell my health care provider before I take this medicine? They need to know if you have any of these conditions: -bone problems -cerebral disease -joint problems -irregular heartbeat -kidney disease -liver disease -myasthenia gravis -seizure disorder -tendon problems -an unusual or allergic reaction to ciprofloxacin, other antibiotics or medicines, foods, dyes, or preservatives - or trying to get -breast-feeding What should I watch for while using this medicine? Tell your doctor or health rn medicare if your symptoms do not improve. Do not treat diarrhea with over the counter products. Contact your doctor if you have diarrhea that lasts more than 2 days or if it is severe and watery. You may get drowsy or dizzy. Do not drive, use machinery, or do anything that needs mental alertness until you know how this medicine affects you. Do not stand or sit up quickly, especially if you are an older patient. This reduces the risk of dizzy or fainting spells. This medicine can make you more sensitive to the sun. Keep out of the sun. If you cannot avoid being in the sun, wear protective clothing and use sunscreen. Do not use sun lamps or tanning beds/booths. Avoid antacids, aluminum, calcium, iron, magnesium, and zinc products for 6 hours before and 2 hours after taking a dose of this medicine. You have been given the following additional information: Pyelonephritis, Female (Adult) Hydrocodone Bitartrate, Acetaminophen Oral tablet Ciprofloxacin Hydrochloride Oral tablet No driving or operating machinery while taking medication. (Electronically signed by Skip Horn MD 09/13/2016 8:03)
--- NOTE | 2016-09-13 08:03 | ED MED RECONCILIATION SUMMARY ---
Patient: BG GARDUNO Medication Reconciliation Report [facility] VisitID: [id number] [address] [place] [address] 21y, F Registration Date/Time: 09/07/2016 Weight: 99.7 kg Height/Length: 68 in. BMI: 33.4 ALLERGIES: Iodine The patient's Home Medications are listed below: NONE. The source(s) of the original Home Medication information: Not obtained. The following Medications were given to the patient in the Emergency Department: IV NS IV Fluids bolus 1000 mL wide open, administered: 09/08/2016 12:16:00 AM Levofloxacin [PO] PO 750 mg, administered: 09/08/2016 2:42:00 AM The following Medications were prescribed to the patient: Hydrocodone/APAP 5mg/325mg: take 1 to 2 orally every 6 hours as needed for pain. Dispense fifteen (15). No refills. -- Skip Horn MD Cipro 500 mg: take 1 tab orally every 12 hours for 10 days. No refills. Substitution is permissible.(18 pills to finish the course started in the ER) -- Skip Horn MD
--- NOTE | 2016-09-13 08:03 | ED MED RECONCILIATION SUMMARY ---
Patient: BG GARDUNO Medication Reconciliation Report [facility] VisitID: [id number] [address] [place] [address] 21y, F Registration Date/Time: 09/07/2016 Weight: 99.7 kg Height/Length: 68 in. BMI: 33.4 ALLERGIES: Iodine The patient's Home Medications are listed below: NONE. The source(s) of the original Home Medication information: Not obtained. The following Medications were given to the patient in the Emergency Department: IV NS IV Fluids bolus 1000 mL wide open, administered: 09/08/2016 12:16:00 AM Levofloxacin [PO] PO 750 mg, administered: 09/08/2016 2:42:00 AM The following Medications were prescribed to the patient: Hydrocodone/APAP 5mg/325mg: take 1 to 2 orally every 6 hours as needed for pain. Dispense fifteen (15). No refills. -- Skip Horn MD Cipro 500 mg: take 1 tab orally every 12 hours for 10 days. No refills. Substitution is permissible.(18 pills to finish the course started in the ER) -- Skip Horn MD
--- NOTE | 2016-09-13 08:03 | ED DISCHARGE INSTRUCTIONS ---
Patient: BG GARDUNO General Instructions [facility] VisitID: [id number] [address] [place] [address] 21y, F Registration Date/Time: 09/07/2016 Acute pyelonephritis INSTRUCTIONS No driving or operating machinery while taking medication. Drink plenty of fluids. Warnings: Further evaluation is necessary. GENERAL WARNINGS: Return or contact your physician immediately if your condition worsens or changes unexpectedly, if not improving as expected, or if other problems arise. Prescription Medications: Hydrocodone/APAP 5mg/325mg: take 1 to 2 orally every 6 hours as needed for pain. Dispense fifteen (15). No refills. Cipro 500 mg: take 1 tab orally every 12 hours for 10 days. No refills. Substitution is permissible. (18 pills to finish the course started in the ER) Follow-up: Follow up with a urologist- as recommended by your primary care physician. Understanding of the discharge instructions verbalized by patient. Follow-up with: [facility], , , [address], , [place], [address] Follow up tomorrow. Call for the next available appointment. ADDITIONAL INFORMATION Kidney Infection [Adult, Female] An infection of the kidney is also called "pyelonephritis". It usually starts as a bladder infection ("cystitis") which spreads to the kidneys. Pyelonephritis is more serious than a bladder infection. It can cause severe illness if not treated properly. The usual symptoms include an aching pain in the back, side or lower abdomen. Other symptoms may include fever, chills, nausea, vomiting, an urge to urinate and a burning sensation when passing urine. Home Care: Stay home from work or school. Rest in bed until your fever breaks and you are feeling better. Drink lots of fluid (at least 6-8 glasses a day, unless you must restrict fluids for other medical reasons). This will force the medicine into your urinary system and flush the bacteria out of your body. Avoid sexual intercourse until you have finished all of your medicine and your symptoms have gone away. Avoid caffeine, alcohol and spicy foods which may irritate the kidney and bladder. You may use acetaminophen (Tylenol) or ibuprofen (Motrin, Advil) to control pain, unless another pain medicine was prescribed. [NOTE: If you have chronic liver or kidney disease or ever had a stomach ulcer or GI bleeding, talk with your doctor before using these medicines.] Follow Up with your doctor or as advised by our staff for a repeat urine test in 10 days. This will ensure that your infection is fully cleared. [NOTE: If you had an X-ray or CT scan, it will be reviewed by a specialist. You will be notified of any new findings that may affect your care.] Get Prompt Medical Attention if any of the following occur: Fever over 100.4F (38.0C) after 48 hours of treatment No improvement by the third day of treatment Increasing back or abdominal pain Repeated vomiting or inability to take oral medicine Weakness, dizziness or fainting Hydrocodone Bitartrate, Acetaminophen Oral tablet What is this medicine? ACETAMINOPHEN; HYDROCODONE (a set a JUVENCIO nuno fen; chelsea droe KOE done) is a pain reliever. It is used to treat mild to moderate pain. How should I use this medicine? Take this medicine by mouth. Swallow it with a full glass of water. Follow the directions on the prescription label. If the medicine upsets your stomach, take the medicine with food or milk. Do not take more than you are told to take. Talk to your pile driver operator regarding the use of this medicine in children. This medicine is not approved for use in children. What side effects may I notice from receiving this medicine? Side effects that you should report to your doctor or health home care physical therapist as soon as possible: allergic reactions like skin rash, itching or hives, swelling of the face, lips, or tongue breathing problems confusion feeling faint or lightheaded, falls stomach pain yellowing of the eyes or skin Side effects that usually do not require medical attention (report to your doctor or health home care physical therapist if they continue or are bothersome): nausea, vomiting stomach upset What may interact with this medicine? alcohol antihistamines isoniazid medicines for depression, anxiety, or psychotic disturbances medicines for sleep muscle relaxants naltrexone narcotic medicines (opiates) for pain phenobarbital ritonavir tramadol What if I miss a dose? If you miss a dose, take it as soon as you can. If it is almost time for your next dose, take only that dose. Do not take double or extra doses. Where should I keep my medicine? Keep out of the reach of children. This medicine can be abused. Keep your medicine in a safe place to protect it from theft. Do not share this medicine with anyone. Selling or giving away this medicine is dangerous and against the law. Store at room temperature between 15 and 30 degrees C (59 and 86 degrees F). Protect from light. Keep container tightly closed. Throw away any unused medicine after the expiration date. Discard unused medicine and used packaging carefully. Pets and children can be harmed if they find used or lost packages. What should I tell my health care provider before I take this medicine? They need to know if you have any of these conditions: brain tumor Crohn's disease, inflammatory bowel disease, or ulcerative colitis drink more than 3 alcohol-containing drinks per day drug abuse or addiction head injury heart or circulation problems kidney disease or problems going to the bathroom liver disease lung disease, asthma, or breathing problems an unusual or allergic reaction to acetaminophen, hydrocodone, other opioid analgesics, other medicines, foods, dyes, or preservatives or trying to get breast-feeding What should I watch for while using this medicine? Tell your doctor or health home care physical therapist if your pain does not go away, if it gets worse, or if you have new or a different type of pain. You may develop tolerance to the medicine. Tolerance means that you will need a higher dose of the medicine for pain relief. Tolerance is normal and is expected if you take the medicine for a long time. Do not suddenly stop taking your medicine because you may develop a severe reaction. Your body becomes used to the medicine. This does NOT mean you are addicted. Addiction is a behavior related to getting and using a drug for a non-medical reason. If you have pain, you have a medical reason to take pain medicine. Your doctor will tell you how much medicine to take. If your doctor wants you to stop the medicine, the dose will be slowly lowered over time to avoid any side effects. You may get drowsy or dizzy when you first start taking the medicine or change doses. Do not drive, use machinery, or do anything that may be dangerous until you know how the medicine affects you. Stand or sit up slowly. There are different types of narcotic medicines (opiates) for pain. If you take more than one type at the same time, you may have more side effects. Give your health care provider a list of all medicines you use. Your doctor will tell you how much medicine to take. Do not take more medicine than directed. Call emergency for help if you have problems breathing. The medicine will cause constipation. Try to have a bowel movement at least every 2 to 3 days. If you do not have a bowel movement for 3 days, call your doctor or health home care physical therapist. Too much acetaminophen can be very dangerous. Do not take Tylenol (acetaminophen) or medicines that contain acetaminophen with this medicine. Many non-prescription medicines contain acetaminophen. Always read the labels carefully. Ciprofloxacin Hydrochloride Oral tablet What is this medicine? CIPROFLOXACIN (sip vani FLOX a sin) is a quinolone antibiotic. It is used to treat certain kinds of bacterial infections. It will not work for colds, flu, or other viral infections. How should I use this medicine? Take this medicine by mouth with a glass of water. Follow the directions on the prescription label. Take your medicine at regular intervals. Do not take your medicine more often than directed. Take all of your medicine as directed even if you think your are better. Do not skip doses or stop your medicine early. You can take this medicine with food or on an empty stomach. It can be taken with a meal that contains dairy or calcium, but do not take it alone with a dairy product, like milk or yogurt or calcium-fortified juice. A special MedGuide will be given to you by the pharmacist with each prescription and refill. Be sure to read this information carefully each time. Talk to your pile driver operator regarding the use of this medicine in children. Special care may be needed. What side effects may I notice from receiving this medicine? Side effects that you should report to your doctor or health home care physical therapist as soon as possible: - allergic reactions like skin rash, itching or hives, swelling of the face, lips, or tongue - breathing problems - confusion, nightmares or hallucinations - feeling faint or lightheaded, falls - irregular heartbeat - joint, muscle or tendon pain or swelling - pain or trouble passing urine -persistent headache with or without blurred vision - redness, blistering, peeling or loosening of the skin, including inside the mouth - seizure - unusual pain, numbness, tingling, or weakness Side effects that usually do not require medical attention (report to your doctor or health home care physical therapist if they continue or are bothersome): - diarrhea - nausea or stomach upset - white patches or sores in the mouth What may interact with this medicine? Do not take this medicine with any of the following medications: cisapride droperidol terfenadine tizanidine This medicine may also interact with the following medications: antacids caffeine cyclosporin didanosine (ddI) buffered tablets or powder medicines for diabetes medicines for inflammation like ibuprofen, naproxen methotrexate multivitamins omeprazole phenytoin probenecid sucralfate theophylline warfarin What if I miss a dose? If you miss a dose, take it as soon as you can. If it is almost time for your next dose, take only that dose. Do not take double or extra doses. Where should I keep my medicine? Keep out of the reach of children. Store at room temperature below 30 degrees C (86 degrees F). Keep container tightly closed. Throw away any unused medicine after the expiration date. What should I tell my health care provider before I take this medicine? They need to know if you have any of these conditions: -bone problems -cerebral disease -joint problems -irregular heartbeat -kidney disease -liver disease -myasthenia gravis -seizure disorder -tendon problems -an unusual or allergic reaction to ciprofloxacin, other antibiotics or medicines, foods, dyes, or preservatives - or trying to get -breast-feeding What should I watch for while using this medicine? Tell your doctor or health home care physical therapist if your symptoms do not improve. Do not treat diarrhea with over the counter products. Contact your doctor if you have diarrhea that lasts more than 2 days or if it is severe and watery. You may get drowsy or dizzy. Do not drive, use machinery, or do anything that needs mental alertness until you know how this medicine affects you. Do not stand or sit up quickly, especially if you are an older patient. This reduces the risk of dizzy or fainting spells. This medicine can make you more sensitive to the sun. Keep out of the sun. If you cannot avoid being in the sun, wear protective clothing and use sunscreen. Do not use sun lamps or tanning beds/booths. Avoid antacids, aluminum, calcium, iron, magnesium, and zinc products for 6 hours before and 2 hours after taking a dose of this medicine. You have been given the following additional information: Pyelonephritis, Female (Adult) Hydrocodone Bitartrate, Acetaminophen Oral tablet Ciprofloxacin Hydrochloride Oral tablet No driving or operating machinery while taking medication. (Electronically signed by Skip Horn MD 09/13/2016 8:03)
--- NOTE | 2016-09-13 08:03 | ED MAR SUMMARY ---
..... Medication Administration Record [facility] [address] [place] [address] Patient: BG GARDUNO Visit ID: [id number] 21y, F Weight: 99.7 kg Height/Length: 68 in BMI: 33.4 ALLERGIES: Iodine Start 00:16 09/08/2016 Lyla Ross R.N., Stop 01:28 09/08/2016 Ana Miles, Medication Administered: IV NS (SALINE), Dose: IV Fluids, Bolus: 1000 mL wide open, Dispensed: 1000 mL bag, Site: #1 right hand. Medication Ordered: IV NS with Normal Saline 1 Liter: initial bolus 1000 mL (1000 mL/hr), then 1000 mL/hr for X1 (NOW). Given 02:42 09/08/2016 Lyla Ross R.N. Medication Administered: LEVOFLOXACIN [PO], Dose: 750 mg Tablets PO. Medication Ordered: Levofloxacin PO 750 mg (NOW).
== END 2016-09-08 02:48 | disposition home or self-care (01) ==
LOC: ED SRH 23:55
DX: N12 Tubulo-interstitial nephritis, not specified as acute or chronic (principal); F17.210 Nicotine dependence, cigarettes, uncomplicated; Z91.09 Other allergy status, other than to drugs and biological substances
CPT/HCPCS: 90004; 90047; 90100; 90148; 90469; 92235; 92530; 93070; 94060; 95059

== ENCOUNTER 2016-09-13 07:38 | Emergency (ER) | payer OTHER | END 2016-09-13 07:50 | disposition left against medical advice (07) | LOC: ED SRH 07:38 | DX: Z53.21 Procedure and treatment not carried out due to patient leaving prior to being seen by health care provider (principal) ==